=== PATIENT | male | born 1945 | race Caucasian/White ===

== ENCOUNTER 2024-02-04 18:03 | Inpatient (IN) | payer MEDICARE, SELFPAY ==
[2024-02-04] VITALS (44 sets, daily range): BP systolic 96–191; BP diastolic 67–139
--- NOTE | 2024-02-04 16:12 | ED.GENMED ---
History of Present Illness
<JUAN R Blair - Last Filed: 02/04/24 17:38>
General
Chief Complaint: Chest Pain
Source: patient
Exam Limitations: none
Time Seen by Provider: 02/04/24 15:55
Nursing documentation reviewed up to this point in time: agreed with
History of Present Illness
History of Present Illness:
Patient is a 78-year-old male with past medical history of CAD with stents, A-fib history of ischemic cardiomyopathy pancreatitis presents to the ER for evaluation of left-sided chest pain and left arm chest pain that started around 10 AM. He
currently still feels symptoms. He has no associated shortness of breath nausea vomiting. He presents to the ER rapid A-fib was unaware that he was in rapid A-fib. He reports he does have a history however has not taken any of his medication in
the past 2 years simply because he stopped taking them.
He denies any shortness of breath now he does complain of shortness of breath when he walks up the steps. He is unsure if this feels similar to his chest pain when he had a stent previously because it was a long time ago.
Past History
<JUAN R Blair - Last Filed: 02/04/24 17:38>
Past History
ED Past Medical History: Arrthythmia (Paroxysmal atrial fibrillation with cardioversion 2011), CAD, NH (2010) and Other (Cholelithiasis/cholecystitis); Negative HTN or NIDDM
ED Past Surgical History: Cardiac (PTCA with stent to the LAD 2010; cardioversion 2011)
Social History
Tobacco: Smoker
Alcohol: None
Personal: Single
Living: alone
Employment: Employed
Family History
Family History: Other (Noncontributory)
Review of Systems
<JUAN R Blair - Last Filed: 02/04/24 17:38>
Review of Systems
Allergies reviewed?: Yes
All Other Systems: ROS reviewed and negative except as documented in HPI and ROS
Constitutional: Reports no symptoms
Respiratory: Reports no symptoms
Cardiac: Reports chest pain
ABD/GI: Reports no symptoms
Musculoskeletal: Reports other (Left arm pain; bilateral extremity swelling)
Skin: Reports no symptoms
Neurological: Reports no symptoms
Psychiatric: Reports no symptoms
Phy Exam
<JUAN R Blair - Last Filed: 02/04/24 17:38>
General Physical Exam
General Presentation: no apparent distress
General age: appears stated age
General Skin: warm and dry
General Habitus: normal
General Mental: alert
General Hydration: appears well hydrated
Cardiovascular Exam
Cardiovascular Exam: irregularly irregular
Pulmonary Exam
Pulmonary Exam: lungs clear and no respiratory distress
Neurological Exam
Neurological Exam: alert and oriented x3
Musculoskeletal Exam
Musculoskeletal Exam: other (Bilateral lower extremity swelling)
Skin Exam
Skin Exam: normal color and warm/dry
Psychiatric Exam
Psychiatric Exam: normal mood/affect
Scores
<JUAN R Blair - Last Filed: 02/04/24 17:38>
Heart Score for Chest Pain Patients
STEMI patient?: Not applicable
Course
<JUAN R Blair - Last Filed: 02/04/24 17:38>
Orders/Labs/Results
Orders:
Orders
02/04/24 15:41
Electrocardiogram (*1) Urgent
Reason for Study: Chest Pain
EKG- Treatment ONCE
02/04/24 15:59
IV Insert/Care/Rem.- Treatment PRN
02/04/24 16:08
Complete Blood Count/With Diff Urgent
Comprehensive Metabolic Panel Urgent
NT-proBNP Urgent
Comment: ADDON
Troponin I Urgent
02/04/24 16:27
Nitroglycerin Sublingual [Nitrostat (Sublingual)] 0.4 mg SL NOW STA
02/04/24 16:28
Diltiazem HCl [Cardizem] 10 mg IV NOW STA
Venous Doppler Lwr Ext Bilat [US Periph Venous LOWER Ext Blake] Urgent
Comment:
Reason For Exam: swelling
02/04/24 16:30
Diltiazem 125 mg/125 ml Nss [Cardizem] 125 mg in 125 ml IV PER PROTOCOL
Initial dose in mg/hr, then titrate:: 5
Titrate to keep:: Heart rate 80-100 bpm
Titrate by mg/hr:: 5 mg/hr
Frequency of titrations (minutes):: 15
Maximum dose in mg/hr:: 15
Heparin 24652 Units/250 ml 25,000 units in 250 ml IV PER PROTOCOL
Weight to be used for heparin protocol in kilograms (kg):: 96.6
Protocol:: Cardiac Tx/Acute Coronary
PTT Goal Range to be used:: PTT 73 to 111 seconds
Order type:: Initial
INITIAL Infusion Dose (UNITS/KG/hr) & then follow protocol:: 12 units/kg/hr
Infusion Dose in UNITS/hr & then follow protocol (UNITS/hr):: 1,000
INFUSION RATE in mL/hr & then follow protocol (mL/hr):: 10
PTT less than or equal to 64 seconds:: Increase rate by 200 units/hr (+ 2 mL/hr)
PTT 64.1 to 72.9 seconds:: Increase rate by 100 units/hr (+ 1 mL/hr)
PTT 73 to 111 seconds:: Target Range. No change in rate.
PTT 111.1 to 130.9 seconds:: Decrease rate by 100 units/hr (- 1 mL/hr)
PTT 131 to 199.9 seconds:: HOLD for 1 hr. Then decrease rate by 200 units/hr (- 2 mL/hr)
PTT greater than or equal to 200 seconds:: HOLD for 2 hrs & Notify Provider. Then decrease by 200 units/hr (-
2 mL/hr)
Lab follow-up:: Each change, PTT q6h until 2 consecutive are therapeutic. Then PTT
daily.
02/04/24 16:[address] Non Medication Order As Directed
Physician Order: PTT 6 hours after initial start of Heparin infusion
Above order entered?: Yes
02/04/24 16:37
DDimer [D-Dimer] Urgent
PTT Urgent
Comment: Obtain baseline before beginning heparin infusion if not already collected
02/04/24 16:54
Portable Chest Xray [CR Chest Portable - 1 View] Urgent
Comment:
Reason For Exam: cp
Reason Study Needs to be Portable: Other
02/04/24 16:59
Heparin 4,000 units IV NOW STA
Heparin 5,000 units .ROUTE .STK-MED ONE
02/04/24 17:00
Heparin 4,000 units IV NOW STA
02/04/24 17:01
Add On- LAB Urgent
Tests Added?: ProBNP
02/04/24 17:14
Ondansetron Injectable [Zofran] 4 mg .ROUTE .STK-MED ONE
02/04/24 17:16
EKG [Electrocardiogram (*1)] Stat
Reason for Study: Chest Pain
EKG- Treatment ONCE
Ondansetron Injectable [Zofran] 4 mg IV NOW STA
02/04/24 17:35
COVID-19 Antigen Urgent
Source: Nasal Swab
02/04/24 17:36
Urinalysis Reflex To Culture Urgent
02/04/24 22:55
PTT Routine
Comment: for iv heparin
Abnormal Lab Results
02/04/24 02/04/24
16:08 16:37
WBC 14.6 H 10^3/uL
(4.8-10.8)
MCV 94.7 H fL
(80.0-94.0)
MCH 32.2 H pg
(27.0-31.0)
Abs Immat Gran (auto) 0.1 H 10^3/uL
(0-0.05)
Absolute Neuts (auto) 13.2 H 10^3/uL
(1.4-6.5)
Absolute Lymphs (auto) 0.8 L 10^3/uL
(1.2-3.4)
Neutrophils % 90.6 H %
(42.2-75.2)
Lymphocytes % 5.2 L %
(20.5-51.1)
D-Dimer 1.13 H ug/mlFEU
(0.00-0.50)
BUN 23 H mg/dl
(9-20)
Glucose 182 H mg/dl
(70-99)
Total Bilirubin 1.5 H mg/dl
(0.2-1.3)
AST 78 H U/L
(17-59)
Alkaline Phosphatase 162 H U/L
(38-126)
Troponin I 4.720 H* ng/ml
02/04/24 16:08
02/04/24 16:08
Vital Signs
Initial and Last Documented VS:
Initial Vital Signs
Temp Pulse Resp Pulse Ox
98.0 F 120 18 95
02/04/24 15:49 02/04/24 15:49 02/04/24 15:49 02/04/24 15:49
Last Documented Vital Signs
Temp Pulse Resp BP Pulse Ox
98.0 F 88 19 139/106 96
02/04/24 15:49 02/04/24 17:30 02/04/24 17:30 02/04/24 17:30 02/04/24 17:30
Rotary Cutter consulted with Physician
Rotary Cutter consulted with physician?: Yes
Name of Physician Consulted: Noh
<Elroy Andrade MD - Last Filed: 02/04/24 17:35>
Orders/Labs/Results
Orders:
Orders
02/04/24 15:41
Electrocardiogram (*1) Urgent
Reason for Study: Chest Pain
EKG- Treatment ONCE
02/04/24 15:59
IV Insert/Care/Rem.- Treatment PRN
02/04/24 16:08
Complete Blood Count/With Diff Urgent
Comprehensive Metabolic Panel Urgent
NT-proBNP Urgent
Comment: ADDON
Troponin I Urgent
02/04/24 16:27
Nitroglycerin Sublingual [Nitrostat (Sublingual)] 0.4 mg SL NOW STA
02/04/24 16:28
Diltiazem HCl [Cardizem] 10 mg IV NOW STA
Venous Doppler Lwr Ext Bilat [US Periph Venous LOWER Ext Blake] Urgent
Comment:
Reason For Exam: swelling
02/04/24 16:30
Diltiazem 125 mg/125 ml Nss [Cardizem] 125 mg in 125 ml IV PER PROTOCOL
Initial dose in mg/hr, then titrate:: 5
Titrate to keep:: Heart rate 80-100 bpm
Titrate by mg/hr:: 5 mg/hr
Frequency of titrations (minutes):: 15
Maximum dose in mg/hr:: 15
Heparin 59395 Units/250 ml 25,000 units in 250 ml IV PER PROTOCOL
Weight to be used for heparin protocol in kilograms (kg):: 96.6
Protocol:: Cardiac Tx/Acute Coronary
PTT Goal Range to be used:: PTT 73 to 111 seconds
Order type:: Initial
INITIAL Infusion Dose (UNITS/KG/hr) & then follow protocol:: 12 units/kg/hr
Infusion Dose in UNITS/hr & then follow protocol (UNITS/hr):: 1,000
INFUSION RATE in mL/hr & then follow protocol (mL/hr):: 10
PTT less than or equal to 64 seconds:: Increase rate by 200 units/hr (+ 2 mL/hr)
PTT 64.1 to 72.9 seconds:: Increase rate by 100 units/hr (+ 1 mL/hr)
PTT 73 to 111 seconds:: Target Range. No change in rate.
PTT 111.1 to 130.9 seconds:: Decrease rate by 100 units/hr (- 1 mL/hr)
PTT 131 to 199.9 seconds:: HOLD for 1 hr. Then decrease rate by 200 units/hr (- 2 mL/hr)
PTT greater than or equal to 200 seconds:: HOLD for 2 hrs & Notify Provider. Then decrease by 200 units/hr (-
2 mL/hr)
Lab follow-up:: Each change, PTT q6h until 2 consecutive are therapeutic. Then PTT
daily.
02/04/24 16:[address] Non Medication Order As Directed
Physician Order: PTT 6 hours after initial start of Heparin infusion
Above order entered?: Yes
02/04/24 16:37
DDimer [D-Dimer] Urgent
PTT Urgent
Comment: Obtain baseline before beginning heparin infusion if not already collected
02/04/24 16:54
Portable Chest Xray [CR Chest Portable - 1 View] Urgent
Comment:
Reason For Exam: cp
Reason Study Needs to be Portable: Other
02/04/24 16:59
Heparin 4,000 units IV NOW STA
Heparin 5,000 units .ROUTE .STK-MED ONE
02/04/24 17:00
Heparin 4,000 units IV NOW STA
02/04/24 17:01
Add On- LAB Urgent
Tests Added?: ProBNP
02/04/24 17:14
Ondansetron Injectable [Zofran] 4 mg .ROUTE .STK-MED ONE
02/04/24 17:16
EKG [Electrocardiogram (*1)] Stat
Reason for Study: Chest Pain
EKG- Treatment ONCE
Ondansetron Injectable [Zofran] 4 mg IV NOW STA
02/04/24 17:35
COVID-19 Antigen Urgent
Source: Nasal Swab
02/04/24 17:36
Urinalysis Reflex To Culture Urgent
02/04/24 22:55
PTT Routine
Comment: for iv heparin
Abnormal Lab Results
02/04/24 02/04/24
16:08 16:37
WBC 14.6 H 10^3/uL
(4.8-10.8)
MCV 94.7 H fL
(80.0-94.0)
MCH 32.2 H pg
(27.0-31.0)
Abs Immat Gran (auto) 0.1 H 10^3/uL
(0-0.05)
Absolute Neuts (auto) 13.2 H 10^3/uL
(1.4-6.5)
Absolute Lymphs (auto) 0.8 L 10^3/uL
(1.2-3.4)
Neutrophils % 90.6 H %
(42.2-75.2)
Lymphocytes % 5.2 L %
(20.5-51.1)
D-Dimer 1.13 H ug/mlFEU
(0.00-0.50)
BUN 23 H mg/dl
(9-20)
Glucose 182 H mg/dl
(70-99)
Total Bilirubin 1.5 H mg/dl
(0.2-1.3)
AST 78 H U/L
(17-59)
Alkaline Phosphatase 162 H U/L
(38-126)
Troponin I 4.720 H* ng/ml
02/04/24 16:08
02/04/24 16:08
Vital Signs
Initial and Last Documented VS:
Initial Vital Signs
Temp Pulse Resp Pulse Ox
98.0 F 120 18 95
02/04/24 15:49 02/04/24 15:49 02/04/24 15:49 02/04/24 15:49
Last Documented Vital Signs
Temp Pulse Resp BP Pulse Ox
98.0 F 88 19 139/106 96
02/04/24 15:49 02/04/24 17:30 02/04/24 17:30 02/04/24 17:30 02/04/24 17:30
<JUAN R Blair - Last Filed: 02/04/24 17:38>
MDM/Problems Addressed
MDM/Problems Addressed:
Patient is a 70-year-old male who is documented presented to the ER for left-sided chest pain and arm pain. Does have a history of cardiac stents and is unsure if this is the similar pain. He has been noncompliant with medication for 2 years
including anticoagulation med. He does have a history of A-fib who presents in A-fib with an elevated heart rate in the 120s. He has bilateral lower extremity swelling he does admit to shortness of breath with exertion such as walking up steps.
Patient did take 7 baby aspirin prior to arrival Case reviewed with Dr. Andrade; nitroglycerin given. IV heparin ordered for CAD/chest pain. Cardiac troponin is elevated at 4.720, normal creatinine.
DR Andrade spoke with fire loss prevention engineer cardiology. pt admitted to the hospitalist service.
with b/l l/e swelling and hx of afib not anticoagulated b/l US ordered.
Chronic conditions affecting care:
afib/CAD w/ stents
<JUAN R Blair - Last Filed: 02/04/24 17:38>
*Pulse Oximetry
Patient hypoxic: no
*EKG
Interpreted by ED Provider?: Yes
Heart Rate: 128
Rate: tachycardiac
Rhythm: a-fib
Ischemia: non-specific ST changes
*Critical Care Note
Total Time (30-74mins, 75-104mins- exclusive of procedures): Not Applicable
ED Attending Note
<JUAN R Blair - Last Filed: 02/04/24 17:38>
-
Portions of this chart may have been created with voice recognition software.� Occasional wrong word or��sound alike� substitutions may have occurred due to the inherent limitations of voice recognition software.
<Elroy Andrade MD - Last Filed: 02/04/24 17:35>
ED Attending Note
Patient seen and examined by attending physician: Yes
ED Attending Note:
Patient presents to ED secondary to sudden onset of left-sided chest pain, while he was at home, around 10 AM. Chest pain described as tightness, 5 out of 10 on pain scale,, radiating up to his left shoulder and arm, along with diaphoresis. Denies
shortness of breath. Denies nausea or vomiting. Denies dizziness. Denies recent illness. Of note, patient does have a history of CAD with cardiac stents in the past. Unfortunately for the past 2 years, patient has stopped taking all his
medications and stopped seeing any physicians, due to financial reasons. Patient unsure if his current chest pain is similar to what he had experienced in the past. Denies recent travel or surgery. Denies leg pain. However patient does report
increased leg swelling. Patient has not experienced shortness of breath with exertion recently.
Physical Exam
General: mild distress, not acutely ill. afebrile
Head: nc/at. eomi
Neck: supple. no meningeal signs.
Heart: irregular irregular, tachycardic, no murmur. equal radial pulses.
Lungs: no acute respiratory distress. clear bilaterally
Abdomen: normal bowel sounds. not tender.
Neuro: alert and oriented. no focal neurological deficits
Skin: no rash
Psychiatric: well kept. interactive and cooperative
Extremities: LE b/l, nonpitting edema. no calf tenderness.
History, exam, EKG, along with blood work, consistent with likely non-STEMI, with patient currently in rapid atrial fibrillation. Patient started on Cardizem infusion after bolus, with improved heart rate. Patient given sublingual nitroglycerin,
without improvement symptoms. Patient started on heparin protocol, per ACLS guidelines.
Discussed with on-call cardiology, Dr. Parry. Patient will be admitted to hospitalist service with following recommendation: adding Toprol-XL 25 mg twice daily and keeping patient n.p.o. after midnight for likely cath in a.m.
Critical care statement: A total of 40 minutes of critical care time was provided for this patient. This includes management of unstable vital signs, evaluation of the patient at bedside, reviewing the patient's pertinent medical records, discussion
with consultants, review of old EKGs and review of pertinent medical records. This time with separate from time utilized to perform the aforementioned documented procedures
Discharge Plan
Departure
Patient Disposition: Admit
Date of Disposition: 02/04/24
Time of Disposition: 17:34
Admit to: IVU
Presentation/result/management discussed w/ accepting MD/DO: Hospitalist
Discharge Problem:
Non-ST elevation NH (NSTEMI), Atrial fibrillation, rapid
Prescriptions:
No Action
aspirin 81 MG tablet,chewable
567 mg PO DAILYPRN PRN (Reason: chest pain)
Referrals:
Jazmin Avilez DO [Family Provider] -
Interventions
Interventions:
*Risk Screen - Suicide Last Done: 02/04/24 15:49
*General Assessment Last Done: 02/04/24 15:49
*Neglect/Abuse Screening Last Done: 02/04/24 15:49
ED- Fall Risk Assessment Last Done: 02/04/24 16:07
*ED COVID-19 Vaccine History Last Done: 02/04/24 16:07
ED- Cardiac Assessment Last Done: 02/04/24 16:07
ED- Pulmonary Assessment Last Done: 02/04/24 16:07
Discharge Date and Time
Print Language: TAMAZIGHT
[2024-02-04 16:22] LABS: % Basophils 0.2 % (0-2); % Eosinophils 0.1 % (0-6); % Immature Granulocytes 0.5 % (0-0.5); % Lymphocytes 5.2 % (20.5-51.1); % Monocytes 3.4 % (1.7-9.3); % Neutrophils 90.6 % (42.2-75.2); Absolute Immature Granulocytes 0.1 10^3/uL (0-0.05); Absolute Lymphocytes 0.8 10^3/uL (1.2-3.4); Absolute Monocytes 0.5 10^3/uL (0.1-0.6); Absolute Neutrophils 13.2 10^3/uL (1.4-6.5); Hematocrit 51.7 % (39.0-52.0); Hemoglobin 17.6 g/dL (13.0-18.0); Mean Corpuscular Hgb 32.2 pg (27.0-31.0); Mean Corpuscular Volume 94.7 fL (80.0-94.0); Mean Platelet Volume 9.8 fL (7.4-10.4); Nucleated Red Blood Cells % 0 % (-); Platelet Count 187 10^3/uL (130-400); Red Blood Cell Count 5.46 10^6/uL (4.70-6.10); Red Cell Dist. Width 13.5 % (11.5-14.5); White Blood Cell Count 14.6 10^3/uL (4.8-10.8)
[2024-02-04] MEDS: CARDIZEM 10 MG IV (16:35)
[2024-02-04] MEDS: CARDIZEM 125 IV (16:35)
[2024-02-04] MEDS: NITROSTAT (SUBLINGUAL) 0.4 MG SL ×3 (16:36→21:52)
[2024-02-04 16:38] LABS: ALT (SGPT) 26 U/L (0-50); AST (SGOT) 78 U/L (17-59); Albumin 4.7 g/dl (3.5-5.0); Alkaline Phosphatase 162 U/L (38-126); Blood Urea Nitrogen 23 mg/dl (9-20); Calcium 9.2 mg/dl (8.4-10.2); Carbon Dioxide 22 mmol/L (22-30); Chloride 102 mmol/L (98-107); Glucose 182 mg/dl (70-99); Potassium 3.9 mmol/L (3.5-5.1); Sodium 145 mmol/L (135-145); Total Bilirubin 1.5 mg/dl (0.2-1.3); Total Protein 8.2 g/dl (6.3-8.2); eGFR > 60.00
[2024-02-04] MEDS: HEPARIN 25000 UNITS/250 ML IV (16:55)
[2024-02-04 16:58] LABS: APTT 27.9 Sec (23.4-35.0)
[2024-02-04 17:00] LABS: D-Dimer 1.13 ug/mlFEU (0.00-0.50)
[2024-02-04] MEDS: HEPARIN 4000 UNITS IV (17:00)
[2024-02-04] MEDS: ZOFRAN 4 MG IV ×2 (17:16→18:36)
[2024-02-04 17:26] LABS: NT-proBNP 1790 pg/ml
--- NOTE | 2024-02-04 17:39 | HPS.HSE ---
Family Physician
-
Family Physician: Jazmin Avilez
Chief Complaint
-
left sided chest pain
History of Present Illness
78-year-old male with past medical history of CAD with stents, A-fib history of ischemic cardiomyopathy pancreatitis presents to the ER for evaluation of left-sided chest pain and left arm chest pain that started around 10 AM. He currently still
feels symptoms. stated sob with exertion. denied fever, chills, runny nose,congestion, cough. denied abdominal pain,n,v,d. denied dysuria hematuria.
He presents to the ER rapid A-fib was unaware that he was in rapid A-fib.
Patient was noted to have elevated Trope. Initiated on heparin drip, Cardizem drip. Admitted for further management
Medical History
Past Medical History
Past Medical History: Reports Other
Additional Past Medical History:
Coronary artery disease
Hyperlipidemia
Paroxysmal A-fib
Hypertension
Hyperlipidemia
Acute cholecystitis
Past Surgical History: Reports Other
Additional Past Surgical History:
Tonsillectomy
Cardiac ablation
Cholecystectomy
Vasectomy
Social History
Tobacco: Former Smoker
Alcohol: None
Drug: None
Family History
Family History: Not pertinent
Allergies / Home Medications
Allergies reflects when Allergies were last updated in [facility].
Home Medications with original date entered in [facility]
Allergy/Medication List:
Allergies
Allergy/AdvReac Type Severity Reaction Status Date / Time
No Known Allergies Allergy Unverified 02/04/24 15:49
Home Medications
aspirin 81 mg chewable tablet 567 mg PO DAILYPRN PRN chest pain 02/04/24
Review of Systems
-
Constitutional: Reports No Symptoms
EENT: Reports No Symptoms
Respiratory: Reports Trouble Breathing
Cardiac: Reports Chest Pain
Abdomen/GI: Reports No Symptoms
: Reports No Symptoms
Musculoskeletal: Reports No Symptoms
Skin: Reports No Symptoms
Neurological: Reports No Symptoms
Endocrine: Reports No Symptoms
Hematologic/Lymphatic: Reports No Symptoms
Psych: Reports No Symptoms
Physical Exam
Vital Signs
Vital Signs
Temp Pulse Resp BP Pulse Ox
98.0 F 88 19 139/106 96
02/04/24 15:49 02/04/24 17:30 02/04/24 17:30 02/04/24 17:30 02/04/24 17:30
Physical Exam
General: Well Developed, Well Nourished and No Apparent Distress
HEENT: NormoCephalic, Moist mucous membranes and Atraumatic
Respiratory: Clear
Cardiac: S1/S2 and Regular Rhythm; No Murmur or Rub
GI: Soft, Non Tender, Non Distended and Normal Bowel Sounds; No Organomegaly
Rectal: Deferred by Provider
Musculoskeletal: No Clubbing, No Cyanosis and No Edema
Skin: No Rash
Neuro: AO x 3 and Nonfocal/grossly intact
Psych: Calm
Laboratory Results
-
02/04/24 16:08
02/04/24 16:08
Laboratory Results
APTT 27.9 Sec (23.4-35.0) 02/04/24 16:37
Total Bilirubin 1.5 mg/dl (0.2-1.3) H 02/04/24 16:08
AST 78 U/L (17-59) H 02/04/24 16:08
ALT 26 U/L (0-50) 02/04/24 16:08
Alkaline Phosphatase 162 U/L (38-126) H 02/04/24 16:08
Troponin I 4.720 ng/ml H* 02/04/24 16:08
Data Reviewed
-
Lab Data: Labs Reviewed by me
Impression/Plan
-
# NSTEMI
-N.p.o. after midnight for likely cath in the morning
-Continue to trend troponin
-obtain ECHo
-EKg in AM
-BP dropped on Nitro, hold nitro
-morphine prn for pain
-statin
-asa
-cardiology consulted
# Rapid atrial fibrillation
-On Cardizem drip
-Heparin protocol continued
-Toprol XL 25 twice a day
-EKG with A-fib with RVR
# History of coronary artery disease
-Cardiac stents
# Leukocytosis likely stress reaction
-WBC 14.6
-Patient is afebrile
-Continue to monitor
# Elevated D-dimer
-Ultrasound of lower extremities pending
# DVT prophylaxis
-Heparin
# CODE STATUS
-Full code
[2024-02-04] MEDS: MORPHINE SULFATE 2 MG IV (17:45)
--- NOTE | 2024-02-04 18:09 | W.PN.UPDATE ---
Addendum entered and electronically signed by Baljeet Aguirre MD 02/04/24 18:19:
Addendum: Patient took 7 tabs of baby ASA this AM with onset of CP prior to ER per patient
Original Note:
Update Note
Progress Note Update
This note serves as an addendum to the H&P by forensic artist LUCIE Natali Julianne MAYER
HPI
78M HX ICM, LVEF 50% in 2019, CAD with stents HX inferior ST-elevation myocardial infarction seen at ER
- acute onset of left-sided chest pain and left arm chest pain that started around 10 AM with persistent CP
- First TPNI is 4.7
- denied shortness of breath nausea vomiting.
He was unaware of rapid A-fib when he presented to ER
HX Prx AF on;y on ASA. Not on AC
NEG exercise stress test in 2020 as below
PHX: as above
Reviewed VS: unremarkable
PE
Gen: Not toxic , NAD
HEENT: anicteric
Neck: supple
Lungs: CTA
Cor: Irregular VR is 80s
Abdomen: soft and benign
COSTUME MAKER: AAO3, symmetric movement s in allextremities
MS: no edema
Psych: normal mood and affect
Laboratory Tests
02/04/24 02/04/24 02/04/24
16:08 16:37 17:47
WBC 14.6 H
Hgb 17.6
Plt Count 187
D-Dimer 1.13 H
Creatinine 1.1
eGFR > 60.00
Total Bilirubin 1.5 H
AST 78 H
Alkaline Phosphatase 162 H
Troponin I 4.720 H*
SARS-CoV-2 Antigen Pending
First TPN 4.72
EKG
ATRIAL FIBRILLATION WITH RAPID VENTRICULAR RESPONSE WITH PREMATURE VENTRICULAR
OR ABERRANTLY CONDUCTED COMPLEXES
NON-SPECIFIC INTRA-VENTRICULAR CONDUCTION BLOCK
POSSIBLE ANTEROLATERAL INFARCT , AGE UNDETERMINED
T WAVE ABNORMALITY, CONSIDER INFERIOR ISCHEMIA
ABNORMAL ECG
WHEN COMPARED WITH ECG OF 28-APR-2016 08:34,
SIGNIFICANT CHANGES HAVE OCCURRED
CXR: pending report
Both Leg US: pending
04/03/20 stress ECHO
Normal treadmill stress echocardiogram at 4.5 mets.
Low risk stress test. Exercise tolerance is poor however at 4.5 mets due to leg weakness.
Last hospitalist admission:
DATE OF ADMISSION: 06/10/2018 -DATE OF DISCHARGE: 06/12/2018
DISCHARGE DIAGNOSES:
1. Acute pancreatitis.
2. History of cholecystectomy in 2014.
3. Paroxysmal atrial fibrillation. Patient is not on anticoagulation.
4. Coronary artery disease, history of inferior ST-elevation myocardial infarction.
5. Ischemic cardiomyopathy with ischemic hypokinesis and ejection fraction of 50%.
6. History of tobacco use.
ASSESSMENT & PLAN
NSTEMI
- agree with Heparin gtt
- ASA 325 mg and c/w baby ASA daily
- IV Morphine PRN
- add NTG gtt to keep CP free
- NPO after MN for cardiac cath in AM
- Lipids profile
- to initiate Statin
- ECHO in AM
- [facility] card consulted ( Case discussed with [employer] Services Dispatcher upon admission )
Fast AF - currently HR 80s , last BP 130/100
HX Prx AF
Currently not on OAC
- c/w Dilt gtt
- Heparin gtt
PMHX :
HX ICM, LVEF 50% in 2019, CAD with stents
HX inferior ST-elevation myocardial infarction
DVT Px: Heparin gtt
Full code
IVU
[2024-02-04 18:12] LABS: COVID-19 Antigen Negative (Negative)
[2024-02-04] MEDS: NITROGLYCERIN PREMIX 250 IV ×2 (18:25→22:42)
--- NOTE | 2024-02-04 18:34 | EDRN ---
nitro gtt stopped @ 1830 d.t hypotension. pt now vomiting. Natali Yun CARPET BINDER made aware. requested jayleenan.
--- NOTE | 2024-02-04 18:41 | EDRN ---
@1810 MD Aguirre @ pts bedside, when he exited room RN expressed concern regarding nitro gtt d.t pt on cardizem gtt and pts BP. Per the order @ that time SBP to remain under 160 which it had. also requested RN administer aspirin stat.. MD/EXHIBITOR SALES made
aware that pt took 7 asa fishing vessel captain to ER.. order then cancelled. per MD Aguirre still give nitro for pain control.
@1833 Natali Yun d/c order for nitro gtt d/t pts immediate hypotension and vomiting. order placed for zofran and zofran administered. pt changed out of dirty gown.
[2024-02-04] MEDS: MORPHINE SULFATE 1 MG IV (20:36)
[2024-02-04] MEDS: LIPITOR 40 MG PO (20:37)
[2024-02-04] MEDS: TOPROL XL 25 MG PO (20:37)
--- NOTE | 2024-02-04 20:40 | PTCARENOTE ---
Addendum entered by Whitley Linares RN 02/05/24 02:04:
Patient having runs of VTach. Cardizem drip discontinued, amio started-- see MAR. Patient tolerating Nitro drip.
Addendum entered by Whitley Linares RN 02/05/24 01:59:
Pt still having chest pain. Sublingual nitro given-- see MAR. Updates given to Brenda Davenport NP, and MARCELLUS Nicole. STAT EKG done. Both came to see patient bedside. Nitro drip initiated-- see MAR.
Original Note:
Received patient at change of shift from ED. BP 135/106, A-Fib 80s, 95% on room air. Cardizem running @ 5 mg/hr and heparin running at 10 ml/hr. Patient c/o of nausea and chest pain (09/19). RN reached out to Brenda Davenport to see what to give about
pain-- gave morphine-- see MAR.
--- NOTE | 2024-02-04 23:08 | W.PN.UPDATE ---
Addendum entered and electronically signed by JUAN R Diamond 02/05/24 00:43:
Patient noted to have 2 episodes of NSVT, Dali Mendez spoke w/Dr. Parry, switched from Cardizem gtt to Amiodarone gtt. Appreciate assistance of CVICU overnight provider, will continue to monitor patient. Plan for LHC in AM per notes.
Original Note:
Update Note
Progress Note Update
Patient currently on Heparin gtt and Cardizem gtt. Patient evaluated for continued chest pain, rates 6 out of 10. Patient given PRN morphine as ordered x 1 with no change in chest pain. Ordered Nitro 0.4 mg SL x 3 doses with no change in chest pain
level. Patient was on nitro gtt in ED and BP dropped. Contacted Dr. Parry and updated on patient status. (ECG's sent, VS sent and reviewed by Dr. Parry). Patient restarted on Nitro gtt at 10 mcg/min, can maintain unless SBP <85. Pt started vomiting
w/initiation of Nitro gtt, Dr. Parry aware. Ed from CVICU also following patient. Patient VS are stable at this time on nitro gtt.
[2024-02-05] VITALS (66 sets, daily range): BP systolic 75–161; BP diastolic 43–134; BMI 31.3
--- NOTE | 2024-02-05 00:09 | W.PN.UPDATE ---
Update Note
Progress Note Update
Cardiology update note:
-Pt's 6/10 chest pain reduced to 3/10 after vomiting. Pt is currently in a-fib 80-90's on Cardizem gtt @ 5mg/hr, Heparin gtt, and initiated on NTG gtt @ 10 mcg/min
-Pt noted to have 2 episodes of NSVT, spoke to Dr. Parry about switching Cardizem gtt to Amiodarone gtt despite slightly elevated LFTs (AST 78 and Alk phos 162) and he concurs
-Supplemental O2 of 2L NC applied, O2sats 95-97%, BP 117/76, HR 80-90's a-fib
-Pt's for LHC in the AM. Will cont. to closely monitor
[2024-02-05] MEDS: CORDARONE 103 MG IV (00:21)
[2024-02-05 00:29] LABS: APTT 77.8 Sec (23.4-35.0)
[2024-02-05] MEDS: CORDARONE 518 MG IV ×2 (01:13→22:47)
[2024-02-05] MEDS: ZOFRAN 4 MG IV ×2 (03:28→17:31)
[2024-02-05 06:32] LABS: Hematocrit 44.6 % (39.0-52.0); Hemoglobin 15.3 g/dL (13.0-18.0); Mean Corp Hgb Conc. 34.3 g/dL (33.0-37.0); Mean Corpuscular Hgb 32.6 pg (27.0-31.0); Mean Corpuscular Volume 95.1 fL (80.0-94.0); Mean Platelet Volume 10.9 fL (7.4-10.4); Platelet Count 178 10^3/uL (130-400); Red Blood Cell Count 4.69 10^6/uL (4.70-6.10); Red Cell Dist. Width 13.9 % (11.5-14.5); White Blood Cell Count 20.7 10^3/uL (4.8-10.8)
--- NOTE | 2024-02-05 06:56 | W.PN.HOSP.TC ---
Today's Communication/Plan
-
c/w heparin, amiodarone gtt,nitro gtt, aspirin, BB, statin
Give Morphine for chest pain
Appreciate cardiology help
Assessment / Plan
Assessment / Plan
Physical Exam
General: Well Developed, Well Nourished and No Apparent Distress
HEENT: Normocephalic, Moist mucous membranes and Atraumatic
Respiratory: Clear
Cardiac: S1/S2 and Regular Rhythm; No Murmur or Rub
GI: Soft, Non Tender, Non Distended and Normal Bowel Sounds; No Organomegaly
Rectal: Deferred by Provider
Musculoskeletal: No Clubbing, No Cyanosis and No Edema
Skin: No Rash
Neuro: AO x 3 and Nonfocal/grossly intact
Psych: Calm
# NSTEMI
known CAD
still having chest pain
troponin went up to 133 from 4.7 upon admission
c//w IV heparin gtt, nitro gtt, aspirin, statin , BB
give one dose of morphine with PRN Zofran if nausea develops
d/w Cardiology service, pt is going for cath this morning,
Currently BP and HR are stable
Appreciate cardiology help
# NSVT
c/w amiodarone drip for now.
# Persistent atrial fibrillation with rapid ventricular response
HR around 80s this morning, on BB & Amiodarone
# Elevated liver enzymes
likely due to acute OK/ ischemia
No tenderness in abdomen on exam
continue to support BP as needed
# Essential (primary) hypertension
# Leukocytosis likely stress reaction
-WBC 14.6
-Patient is afebrile
-Continue to monitor
# Elevated D-dimer
-Ultrasound of lower extremities pending
# DVT prophylaxis
-Heparin
# CODE STATUS
-Full code
Total time spent to see the patient, examine the patient on the floor, review data and lab results, discuss treatment plan with patient, nursing staff around 55 minutes
Anticipated Discharge: > 48 hours
Subjective/Interval History
-
Date of Service: February 05, 2024
Events over night were reviewed
He reports chest pain ( lower part of chest), no nausea this morning
Objective Data
-
Labs:
Laboratory Results
02/04/24 02/05/24 02/05/24
22:55 00:03 05:58
WBC 20.7 H
Hgb 15.3
Hct 44.6
Plt Count 178
APTT Cancelled 77.8 H 86.0 H
Sodium Pending
Potassium Pending
Chloride Pending
Carbon Dioxide Pending
BUN Pending
Creatinine Pending
Glucose Pending
Calcium Pending
Total Bilirubin Pending
AST Pending
ALT Pending
Alkaline Phosphatase Pending
Vital Signs:
Vital Signs
Temp Pulse Resp BP Pulse Ox
97.8 F 77 18 138/102 97
02/05/24 00:30 02/05/24 04:00 02/05/24 00:30 02/05/24 03:25 02/05/24 00:30
I&O
02/03/24 02/04/24 02/05/24
06:59 06:59 06:59
Output Total 100 / 100
Balance -100 / -100
[2024-02-05 06:57] LABS: Alkaline Phosphatase 125 U/L (38-126); Blood Urea Nitrogen 30 mg/dl (9-20); Calcium 8.5 mg/dl (8.4-10.2); Carbon Dioxide 22 mmol/L (22-30); Chloride 100 mmol/L (98-107); Direct Bilirubin 0.3 mg/dl (0.0-0.4); Estimated Creatinine Clearance 53 ml/min; Glucose 298 mg/dl (70-99); HDL Cholesterol 53 mg/dl; LDL Cholesterol, Calculated 107 mg/dl; Potassium 4.5 mmol/L (3.5-5.1); Sodium 138 mmol/L (135-145); Total Bilirubin 2.5 mg/dl (0.2-1.3); Total Cholesterol 176 mg/dl (50-199); Triglyceride 80 mg/dl (10-149); Very Low Density Lipoprotein 16 mg/dl (0-30); eGFR 56.23
--- NOTE | 2024-02-05 07:11 | CON.CAR ---
Addendum entered and electronically signed by David Parry DO 02/05/24 10:08:
I saw and examined the patient.
The Per Diem Registered Nurse's note was reviewed and I agree with the note.
Comment:
Plan:
NSTEMI with rising troponin and recurrent cp.
Cont IV Heparin
Titrate IV nitroglycerin
SL nitro this am, morphine prn.
Continue metoprolol, aspirin, Lipitor. Eventual URSULA inhibitor.
Discussed compliance with medications is a must going forward.
Reviewed previous cath with the patient.
Check echocardiogram
Discussed with nursing.
Patient for urgent cardiac catheterization, procedure of which and risks were discussed.
Original Note:
Consultation
Consultation Request
Date/Time Consultation Requested: 02/04/2024 , 1755
Date/Time Consultation Performed: 02/05/2024 0700
Requesting Provider: JUAN R Jensen
Performing Provider: JUAN R Vrama
Reason for Consultation: chest pain
Medical History
-
Chief Complaint: chest pain
History of Present Illness:
78-year-old male with past medical history inferior TX with stenting to the RCA 08/2015,, previous LAD stenting , 2010 in setting of non-ST elevation TX, Permanent atrial fibrillation, ischemic cardiomyopathy (most recent stress echo 03/2020 EF 55 to
60%, normal stress echo) presented to the ED 02/04/2024 with left-sided chest and arm pain with associated shortness of breath starting around 10 AM. He was noted to be in rapid A-fib and started on heparin and Cardizem drips.Patient had taken 7
baby aspirin prior to admission. He has been off all medications for some time and was last seen by cardiology 04/2020. Initial troponin 4.7, EKG atrial fibrillation, right bundle branch block, Anterior lateral Q waves. BNP 1790. Started on
heparin drip as above and nitro drip. Blood pressure dropped on nitro drip so stopped in ED but had subsequent 6/10 chest pain and given morphine with no change in pain. Received 3 sublingual nitros with no change in pain. He was restarted on
nitro drip. Also having vomiting.
Subsequently developed 2 episodes of nonsustained VT and was switched from Cardizem drip to amiodarone. Troponin trending up to 49, now 133. Patient currently having 5 out of 10 epigastric pressure and receiving IV morphine. Blood pressure
130s/80s.heart rate 80s to 90s in A-fib. Plan for left heart cath today.
Past medical history:
Inferior TX 08/2015 with stents to RCA, LAD stents 08/2010
Permanent atrial fibrillation
Laparoscopic cholecystectomy 2014
pancreatitis
tobacco use
Past Medical History
Past Medical History: Other (as above)
Past Surgical History: Cholecystectomy and Tonsilectomy
Social History
Tobacco: Former Smoker
Alcohol: None
Drug: None
Family History
Family History: Reviewed & Not Pertinent
Allergies / Home Medications
Allergy/AdvReac Type Severity Reaction Status Date / Time
No Known Allergies Allergy Unverified 02/04/24 15:49
�Medication �Instructions �Recorded �Confirmed �Type
aspirin 81 mg chewable tablet 567 mg PO DAILYPRN PRN chest pain 02/04/24 02/04/24 History
Physical Exam
Vital Signs
Temp Pulse Resp BP Pulse Ox
97.8 F 77 18 138/102 97
02/05/24 00:30 02/05/24 04:00 02/05/24 00:30 02/05/24 03:25 02/05/24 00:30
Lab Results
02/05/24 05:58
02/05/24 05:58
Troponin I 49.000 ng/ml H* D 02/04/24 23:34
Qiv-L-Wmghxwvydow Pept 1790 pg/ml 02/04/24 16:08
GEN:pale, awake, Ox3
HEENT: supple, anicteric, mmm
LUNGS: CTA, no wheezes/rales
CV: Reg, S1/S2, 2/6 systolic murmur LSB
ABD: soft, BS+, NT/ND
EXT: 1+ LE edema, feet/legs cool
NEURO: Gross non-focal
SKIN: No rash
Impression / Plan
-
PCP:
Primary programming intern: Jude Guerrero MD
Impression:
Acute TX
A-fib with rapid ventricular response/underlying permanent atrial fibrillation
NSVT
h/o CAD s/p inf TX w/ JAZMÍN x 2 RCA 2015, LAD BMS stent 2010
Right bundle branch block
Chest pain
Cholecystitis. Status post laparoscopic cholecystectomy
Previous cardiovascular studies:
Cardiac cath 08/31/2015: Widely patent proximal LAD stent without significant restenosis, mild luminal irregularities mid LAD. Circumflex mild luminal irregularities. RCA: Mid 60 to 70% stenosis, 95 distal stenosis proximal to takeoff of right PDA.
Right PDA 30%, distal right posterior lateral 50%. Acute marginal arising from mid RCA 80% stenosis. Status post JAZMÍN distal RCA, mid RCA
Cardiac cath 08/31/2010: 90% proximal LAD, followed by 80% LAD. Small OM1 branch with 75% proximal stenosis. Status post PTCA bare-metal stent to proximal LAD
Stress echo 04/03/2020: Normal, low exercise tolerance, 4.5 METS EF 55 to 60%
Echo 09/01/2015: EF 50%, mild concentric LVH, mild aortic sclerosis
Labs 02/05/2024: Na 138, K 4.5, BUN 30, creat 1.3, ast 662, alt 83, BNP 1790
LDL 107, HDL 53, trig 80, tchol 176
Plan:
-ruling in acute TX, troponin up to 133, continue to trend
-cont Heparin/NTG
-LHC today
-having CP on NTG gtt, PRN Morphine for breakthrough pain
-contiue Amio for NSVT on telem (up to 27 beat runs NSVT prior to starting Amio - NSVT now resolved on Amio)
-resume outpatient cardiac meds once stablized
Data Reviewed
-
EKG: Tracing Personally Visualized and interpreted
Labs: Labs Reviewed by me
[2024-02-05 07:32] LABS: ALT (SGPT) 83 U/L (0-50); AST (SGOT) 662 U/L (17-59)
[2024-02-05] MEDS: TOPROL XL 25 MG PO ×2 (08:45→20:04)
[2024-02-05] MEDS: LOW STRENGTH ASPIRIN 81 MG PO (08:45)
[2024-02-05] MEDS: NITROSTAT (SUBLINGUAL) 0.4 MG SL (08:52)
--- NOTE | 2024-02-05 08:53 | PTCARENOTE ---
Patient with 6 out 10 chest pain. 1 SL ntiro given, nitro increased to 20mcg/min. Run of VT 10 beats this morning voiding in urinal dark yellow color urine, bladder scan 89. Has been in A-fib in the 80's Nausea persists. 4 baby ASA given and
Metoprol given. Report given to the cath lab tech, patient sent to the cath lab tech
[2024-02-05 09:39] LABS: ACT-LR - POC 302 Seconds (116-155)
[2024-02-05 09:48] LABS: ACT-LR - POC 327 Seconds (116-155)
[2024-02-05 10:10] LABS: ACT-LR - POC 294 Seconds (116-155)
[2024-02-05 10:23] LABS: ACT-LR - POC 332 Seconds (116-155)
[2024-02-05 10:56] LABS: ACT-LR - POC 337 Seconds (116-155)
--- NOTE | 2024-02-05 11:04 | ITS.CL.CATH ---
[employer] - Catheterization
Cardiac Catheterization
Procedure Report:
LEFT HEART CATH AND CORONARY INTERVENTION
Date of Procedure: February 05, 2024
Referring: Dr. David Parry
PROCEDURES:
1. Left heart catheterization with coronary and single-plane left ventriculography
2. Successful stenting of the LAD with overlapping 2.25 x 38 mm and 3.0 x 28 mm. The more distal stent was postdilated with a 2.5 mm noncompliant balloon while the more proximal stent was postdilated with a 3.25 mm noncompliant balloon
3. Intravascular ultrasound
4. Treatment of no reflow with adenosine, nicardipine, and epinephrine antegrade through guide catheter and through Twin-Pass microcatheter
INDICATION: This is a 78-year-old gentleman who was admitted to [facility] following the development of substernal chest pressure beginning the day of admission in the morning and persisting throughout the day into the evening and following
admission. He is permanently in atrial fibrillation and has a prior history of prior LAD and RCA stenting. He discontinued all of his medications at home sometime ago. He had an initial troponin of 4.7 and repeat troponin readings went to 19.2
ng/mL, 49.0 ng/mL then to 133 ng/mL. He did continue to experience some degree of chest discomfort but symptoms improved with better heart rate control with chest pain going from 6/10 in intensity to 3/10 in intensity after experienced nausea and
vomiting. Low-grade chest discomfort was still reported this morning.
ACCESS: Right common femoral artery, 6 [place] sheath. Right radial pulse was absent/very faint
HEMODYNAMICS (mmHg):
AO (s/d, m) : 114/88, 100
LV (s/d) : 113/23
LVEDP : 27
CORONARY FINDINGS
Dominance: Right
LEFT MAIN: Small caliber left main with minor distal tapering
LEFT ANTERIOR DESCENDING: The LAD arises normally from the left main and runs in the anterior interventricular groove. There is a stent in the proximal LAD from 2010 with a hazy subtotal occluded segment in the distal portion of the stent
suggestive of thrombus and occlusion of the LAD approximately 20 mm beyond the stented segment.
CIRCUMFLEX: The circumflex is a medium caliber nondominant vessel giving rise to a small OM1 and bifurcating OM 2.
RIGHT CORONARY: The right coronary artery is a large-caliber dominant vessel. The mid right coronary artery has overlapping 3.0 x 28 mm and 3.0 x 23 mm Xience stents in the mid to distal artery. There is 30% in-stent restenosis within the more
proximal stent. The origin of the PDA has a 60% stenosis with the mid PDA having a 60% stenosis in the distal PDA having an 80% stenosis the posterolateral branch is a moderate caliber vessel with 70% stenosis from his mid to distal portion
VENTRICULOGRAPHY: Left ventriculography was performed in an STAHL projection. The ventricle was found dilated and globally hypokinetic with mid to distal anterior, apical, and apical inferior severe hypokinesis to akinesis
ANGIOPLASTY PROCEDURE DETAIL: Upon review of the diagnostic catheterization films a decision was made to proceed with percutaneous revascularization of the occluded mid LAD. Intravenous heparin was administered and the ACT was monitored throughout
the procedure. A 180 mg loading dose of ticagrelor was given. The origin of the left main was cannulated with a 6 [place] EBU 3.75 guiding catheter and a BMW guidewire across the stent then into the distal vessel with a moderate degree of
difficulty. Balloon predilation was performed using a 2.0 x 15 mm Euphora balloon from the mid LAD to the more proximal LAD with inflations performed in an overlapping fashion. Antegrade flow was not restored with evidence of no reflow distally.
Intracoronary nitroglycerin was given to the guide catheter and was followed by additional rounds of intracoronary adenosine in an attempt to improve no reflow. Flow into the mid LAD did not improve and angiography was suggestive of a residual
high-grade mid LAD stenosis. Serial balloon inflations were performed using a 2.0 mm Euphora balloon and was followed by placement of a 2.25 x 38 mm Virgilio stent that was implanted at nominal pressures. A 3.0 x 30 mm Virgilio stent was positioned
overlapping with the mid LAD stent in position within the old LAD stent covering almost the entire previously stented segment. The Gratiot stent was implanted at nominal pressures. Antegrade flow into the distal vessel remained poor. At this point
intravascular ultrasound was performed in an attempt to understand the etiology of poor distal flow as it was uncertain if it was related to a mechanical issue such as distal vascular dissection or secondary to poor outflow due to a microvascular
issue. The [place] catheter was advanced to the apical LAD and pullback was performed. The distal LAD was a very small caliber vessel measuring 2 mm or less. The distal stent was well approximated to the vessel wall and there was no ultrasound
evidence of distal dissection. The average minimal luminal diameter in the distal LAD was around 2.25 mm to 2.5 mm. The IVUS catheter was slowly withdrawn proximally and the stent appeared well approximated but maybe a little undersized. The
distal stent was post dilated with a 2.25 mm NC balloon with serial balloon inflations performed to the mid stent. The proximal segment of the more distal stent was post dilated with a 3.25 mm NC balloon throughout the more proximal stent where the
stent was post dilated to 22 atmospheres. Persistent no reflow was noted. A Twin-Pass catheter was advanced distally and intracoronary nicardipine was administered between 120 mcg and 200 mcg. Nicardipine failed to improved distal flow and the
decision was made to administer epinephrine. Epinephrine was administered to the distal coronary bed. A total of 3 rounds of epinephrine were given between 20 mcg and 40 mcg. Heart rate and blood pressure did improve. At the conclusion of the
procedure there was NAE 2 flow to the distal LAD. The procedure was long and complex requiring multiple catheter exchanges and infusion of adenosine, nicardipine, and epinephrine to the distal vessel with Twin-Pass catheter.
RADIATION SUMMARY: Fluoro Time (min): 16.3, Dose (mGy): 1195, DAP (Gy.cm2) : 94.6
CONCLUSIONS
1. Complex stenting of the LAD with overlapping 3.0x30 mm and 2.25 x 38 mm Gratiot stents that were post dilated with a 2.25 mm NC balloon distally and a 3.25 mm NC balloon in the proximal to mid portion of the stent
2. The procedure was complicated by the development of no reflow that required multiple round of adenosine, nicardipine, and epinephrine
3. Intravascular ultrasound utilized to confirm no distal dissection and to assess luminal diameters for post dilation
RECOMMENDATIONS
1. Aspirin, clopidogrel, and oral anticoagulation for 2 weeks followed by clopidogrel and Eliquis
2. The patient has a history of noncompliance. He stopped his antiplatelet medications and stopped his Eliquis with permanent atrial fibrillation. I discussed the need to remain compliant with medications. He stated an understanding but I remain
worried about early termination of antiplatelet medications. The need for medication compliance is essential
3. Elevated LFT's likely secondary to myocardial infarction. Holding statin therapy for now. Will follow serial LFT's
4. Echocardiogram
5. Supportive care.
Copy to: Dr. Jude Guerrero
--- NOTE | 2024-02-05 12:04 | PTCARENOTE ---
received pt from [facility] into 2265. Pt is lethargic but easily arousable to verbal stimuli, AAOX3. Afib on tele w HR 70's, + doppler pulses. Pt co 4/10 persistent CP. BP 114/93. Lungs diminished, pox 93-96% on 6L NC. Pt denies nausea. Pt was able to
void steve urine. Dressing to right groin C/D/I. Bedrest maintained.
drips: Amiodarone 0.5mg/min
Integrilin 16 ml/hr
[2024-02-05 12:28] LABS: Glycohemoglobin (HgbA1c) 5.1 % (4.0-5.6)
--- NOTE | 2024-02-05 13:54 | PTCARENOTE ---
incont care provided, echo at bedside.
[2024-02-05] MEDS: PROTONIX 40 MG PO (15:09)
[2024-02-05] MEDS: NITROGLYCERIN PREMIX 250 IV (15:09)
--- NOTE | 2024-02-05 15:20 | PTCARENOTE ---
Nitroglycerin gtt initiated as ordered for CP 06/20. Will monitor.
[2024-02-05] MEDS: INTEGRILIN 100 IV (15:34)
[2024-02-05 15:59] LABS: Urine Albumin 1+ (Neg - Trace); Urine Bilirubin 1+ (Negative); Urine Character Clear (Clear); Urine Color Amber; Urine Glucose Negative (Negative); Urine Ketone Negative (Negative); Urine Leukocyte Trace (Negative); Urine Nitrite Positive (Negative); Urine Occult Blood Negative (Negative); Urine Specific Gravity 1.005 (<1.030); Urine Urobilinogen Negative (Neg - 1+)
--- NOTE | 2024-02-05 16:18 | CM ---
Reviewed chart. Mr. Mukherjee was transferred to CVICU. Tried several time to see him, but he was not available. Will try again tomorrow to review discharge plans.
[2024-02-05 16:21] LABS: Urine Bacteria Moderate (Negative); Urine Red Blood Cell 0-2 /HPF (0-2); Urine Squamous Cell 0-2 /LPF (Few); Urine White Cell 0-2 /HPF (0-5)
--- NOTE | 2024-02-05 18:31 | PTCARENOTE ---
updated pt's daughter via telephone.
--- NOTE | 2024-02-05 18:38 | PTCARENOTE ---
Dr. Mills made aware of troponin 345.000. Instructed to increase Nitro gtt from 10mcg to 15mcg.
--- NOTE | 2024-02-05 19:01 | PTCARENOTE ---
received pt from previous rn. Pt is drowsy but easily arousable to verbal stimuli, AAOX3. Afib on tele w HR 90's, + doppler pulses. +1 B/L Le edema, pox 95-98% on 4L NC, lungs diminished, pt c/o of nausea reglan given, +bs, condom cath draining
steve urine, R groin dressing with old drainage, piv intact. Bedrest maintained.
gtt: amio 0.5
Nitro 15
[2024-02-05] MEDS: REGLAN 10 MG IV (19:56)
[2024-02-05] MEDS: HEPARIN 25000 UNITS/250 ML IV (22:35)
--- NOTE | 2024-02-05 23:37 | PTCARENOTE ---
pt took out Left AC IV, pt confused but easily reoriented with verbal stimuli
[2024-02-06] VITALS (32 sets, daily range): BP systolic 83–113; BP diastolic 65–98; BMI 30.7
--- NOTE | 2024-02-06 02:45 | PTCARENOTE ---
pt removed L hand IV and frequently removing his oxygen and other devices, new #20 placed in R hand, Mitt hand restraints applied per [facility]PA Ed Jing order
--- NOTE | 2024-02-06 05:13 | PTCARENOTE ---
routine labs and EKG obtained, VSS, A-fib per monitor and storage bin tender assessment remains unchanged
[2024-02-06 05:24] LABS: Hematocrit 41.2 % (39.0-52.0); Hemoglobin 13.8 g/dL (13.0-18.0); Mean Corp Hgb Conc. 33.5 g/dL (33.0-37.0); Mean Corpuscular Hgb 32.6 pg (27.0-31.0); Mean Corpuscular Volume 97.4 fL (80.0-94.0); Mean Platelet Volume 11.2 fL (7.4-10.4); Platelet Count 149 10^3/uL (130-400); Red Blood Cell Count 4.23 10^6/uL (4.70-6.10); Red Cell Dist. Width 14.2 % (11.5-14.5); White Blood Cell Count 30.6 10^3/uL (4.8-10.8)
[2024-02-06 05:31] LABS: APTT 59.1 Sec (23.4-35.0)
[2024-02-06 05:45] LABS: ALT (SGPT) 191 U/L (0-50); AST (SGOT) 677 U/L (17-59); Albumin 3.3 g/dl (3.5-5.0); Alkaline Phosphatase 91 U/L (38-126); Blood Urea Nitrogen 58 mg/dl (9-20); Calcium 8.3 mg/dl (8.4-10.2); Carbon Dioxide 23 mmol/L (22-30); Chloride 99 mmol/L (98-107); Estimated Creatinine Clearance 37 ml/min; Glucose 264 mg/dl (70-99); Potassium 4.8 mmol/L (3.5-5.1); Sodium 135 mmol/L (135-145); Total Bilirubin 3.7 mg/dl (0.2-1.3); Total Protein 6.1 g/dl (6.3-8.2); eGFR 38.05
--- NOTE | 2024-02-06 06:54 | W.PN.HOSP.TC ---
Addendum entered and electronically signed by Arturo Fernandes MD 02/06/24 11:53:
Addendum
Pt is showing confusion, could be TME
urine was positive for bacteria, will do empiric Rocephin until culture is back
Will check bladder scan
Will follow
End
Original Note:
Today's Communication/Plan
-
- Medical noncompliance. Challenging issue
-Hyperglycemia secondary to dextrose infusion that is mixed with IV medications. Will do low-dose insulin sign scale. Hopefully we can wean off amiodarone drip today. Plan per cardiology to keep heparin and nitr gtt for today.
-Hold IV Lasix. Avoid hypotension
Assessment / Plan
Assessment / Plan
Physical Exam
General: Well Developed, Well Nourished and No Apparent Distress
HEENT: Normocephalic, Moist mucous membranes and Atraumatic
Respiratory: Clear
Cardiac: S1/S2 and Regular Rhythm; No Murmur or Rub
GI: Soft, Non Tender, Non Distended and Normal Bowel Sounds; No Organomegaly
Rectal: Deferred by Provider
Musculoskeletal: No Clubbing, No Cyanosis and No Edema
Skin: No Rash
Neuro: AO x 3 and Nonfocal/grossly intact
Psych: Calm
# Medical noncompliance.
Challenging issue. No guarantee the patient will be compliant with his medications. Will eventually discharge to custodial or with home care services.
# NSTEMI
known CAD
No worsening chest pain
troponin went up to 133 from 4.7 upon admission
c//w IV heparin gtt, nitro gtt, aspirin, Plavix, BB
Echocardiogram showed LVEF 25- 30%. Global hypokinesis with apical echogenicities. Reduced RV function. Mild MR, mild TR.
[facility] 02/04 showed severe LAD disease. Status post complex LAD stenting.
Appreciate cardiology help
# NSVT
c/w amiodarone drip for now.
# Acute kidney injury. Hold Lasix. Status massive MN and decreased LV function
# Ischemic hepatitis secondary to MN and depressed cardiac output
# Persistent atrial fibrillation with rapid ventricular response
Better controlled with amiodarone beta-blockers
# Essential (primary) hypertension
Avoid hypotension
# Leukocytosis likely stress reaction
-WBC around 30.
-Patient is afebrile
-Continue to monitor
# Elevated D-dimer
-Ultrasound of lower extremities pending
# DVT prophylaxis
-Heparin
# CODE STATUS
-Full code. He wanted limited code and only for one cycle of CRP if needed, no prolonged life support if needed.
# Hyperglycemia secondary to dextrose infusion that is mixed with IV medications. Will do low-dose insulin sign scale. Hopefully we can wean off amiodarone drip today
Total time spent to see the patient, examine the patient on the floor, review data and lab results, discuss treatment plan with patient, nursing staff around 55 minutes
Anticipated Discharge: > 48 hours
Subjective/Interval History
-
Date of Service: February 06, 2024
Objective Data
-
Labs:
Laboratory Results
02/06/24 02/06/24
05:07 12:00
WBC 30.6 H
Hgb 13.8
Hct 41.2
Plt Count 149
APTT 59.1 H Pending
Sodium 135
Potassium 4.8
Chloride 99
Carbon Dioxide 23
BUN 58 H
Creatinine 1.8 H
Glucose 264 H
Calcium 8.3 L
Total Bilirubin 3.7 H
AST 677 H*
ALT 191 H
Alkaline Phosphatase 91
Vital Signs:
Vital Signs
Temp Pulse Resp BP Pulse Ox
97.8 F 84 22 105/87 97
02/06/24 04:00 02/06/24 06:00 02/06/24 06:00 02/06/24 06:00 02/06/24 06:00
I&O
02/04/24 02/05/24 02/06/24
06:59 06:59 06:59
Intake Total 528.9 / 528.9
Output Total 100 / 100 450 / 450
Balance -100 / -100 78.9 / 78.9
[2024-02-06] MEDS: TOPROL XL 25 MG PO ×2 (07:47→21:01)
[2024-02-06] MEDS: LOW STRENGTH ASPIRIN 81 MG PO (07:47)
[2024-02-06] MEDS: PROTONIX 40 MG PO (07:47)
[2024-02-06] MEDS: LASIX 80 MG IV (07:47)
[2024-02-06] MEDS: PLAVIX 600 MG PO (07:47)
[2024-02-06] MEDS: ZOFRAN 4 MG IV (08:00)
--- NOTE | 2024-02-06 08:33 | PTCARENOTE ---
assumed care of pt from previous shift ryland GREGORIO on tele w HR 80's, bp 110/86, + peripheral pulses via doppler, pt denies CP. Lungs diminished w fine crackles at left base, pox 98% on 4L NC. Pt denies nausea, meds crushed and taken with yogurt.
Condom catheter in place, steve urine. PIV x3 w sites intact. Right groin cardiac cath site ecchymotic, soft w dressing intact. Mouth care provided. Pt oriented to person and place, forgetful to time and situation. Call emerson system and fall
precautions reviewed. Bed alarm maintained.
DRIPS: Heparin 1200 units/ hr
Amiodarone 0.5 mg/min
Nitro 15mcg/min
--- NOTE | 2024-02-06 09:05 | PTCARENOTE ---
IS reviewed w the pt. Pt was able to demonstrate correct use.
--- NOTE | 2024-02-06 09:16 | W.PN.CARDCBS ---
Addendum entered and electronically signed by Agustina Carlton PA-C 02/06/24 14:39:
discussed with patient's daughter Fatmata and updated via telephone for 13:05. she is contemplating coming to visit her dad however does not want to stress him out or burden him with her visit. we reviewed results of echo and his current medications.
we discussed that his life may look different moving forward from this event (given that prior to admission he was very independent and lived alone). will continue to update her throughout hospital course.
Original Note:
Today's Communication / Plan
-
Continue supportive care
Reassess IV Amio later today
Continue heparin and nitrates for now
Follow blood pressure
Follow LFTs
Postcatheterization care with antiplatelet therapy
Hold on lipid-lowering for now given LFT abnormality continue to reassess
Impression / Plan
-
PCP:
Primary managed services sales consultant: Jude Guerrero MD
Impression:
Acute [place]
Cardiogenic shock
A-fib with rapid ventricular response/underlying permanent atrial fibrillation
Nonsustained VT
New heart failure with reduced ejection fraction ejection fraction 25 to 30%. Also reduced right ventricular systolic function.
h/o CAD s/p inf [place] w/ JAZMÍN x 2 RCA 2015, LAD BMS stent 2010
Elevated LFTs
Renal insufficiency
Elevated white blood count
Right bundle branch block
Chest pain
Previous cardiovascular studies:
-Echocardiogram 02/05/2024 with asymmetric septal hypertrophy. Ejection fraction 25 to 30%. Global hypokinesis with apical akinesis. Reduced RV systolic function. Mild MR. Mild TR. PA pressure 25 mmHg.
-Cardiac catheterization 02/05/2024 complex stenting of LAD with overlapping 3 x 30 mm and 2.25 x 38 mm Mc[place]rew stents. No reflow that required multiple rounds of adenosine, nicardipine and epinephrine. No distal dissection. LVEDP 27. RCA 30%
in-stent restenosis. PDA 60% stenosis with mid PDA 60% stenosis and distal PDA 80% stenosis. 70% stenosis of the posterolateral branch.
Cardiac cath 08/31/2015: Widely patent proximal LAD stent without significant restenosis, mild luminal irregularities mid LAD. Circumflex mild luminal irregularities. RCA: Mid 60 to 70% stenosis, 95 distal stenosis proximal to takeoff of right PDA.
Right PDA 30%, distal right posterior lateral 50%. Acute marginal arising from mid RCA 80% stenosis. Status post JAZMÍN distal RCA, mid RCA
Cardiac cath 08/31/2010: 90% proximal LAD, followed by 80% LAD. Small OM1 branch with 75% proximal stenosis. Status post PTCA bare-metal stent to proximal LAD
Stress echo 04/03/2020: Normal, low exercise tolerance, 4.5 METS EF 55 to 60%
Echo 09/01/2015: EF 50%, mild concentric LVH, mild aortic sclerosis
Labs 02/05/2024: Na 138, K 4.5, BUN 30, creat 1.3, ast 662, alt 83, BNP 1790
LDL 107, HDL 53, trig 80, tchol 176
Plan:
-Patient with myocardial infarction status post LAD stent with no reflow phenomenon treated aggressively. Cardiogenic shock.
Continue postcatheterization care
Continue heparin, IV nitroglycerin, aspirin and clopidogrel
Continue to reassess status given cardiogenic shock. Blood pressure currently stable. Although critically ill patient appears to be perfusing.
-Volume overload and new heart failure with reduced ejection fraction in the setting of myocardial infarction.
Eventual guideline directed treatment for heart failure with reduced ejection fraction limited currently by blood pressure and renal insufficiency. Continue to reassess.
-Permanent atrial fibrillation
Continue IV heparin. Currently rate controlled. EKG abnormal but stable.
For now amiodarone for rate control. Consider discontinuation of amiodarone later today.
-Abnormal LFTs
Likely secondary to shock follow. Also defer to primary service.
-Renal insufficiency likely secondary to shock.
Follow
-NSVT
Telemetry currently stable.
Consider discontinuation of amiodarone later today.
-Hyperlipidemia
Hold on lipid-lowering for now continue to reassess. Abnormal LFTs noted. Consider starting Zetia tomorrow.
Discussed with nursing. Start incentive spirometry. Patient remains critically ill. 31 minutes total critical care time.
Progress Note - Calculator Operator
Subjective
Date of Service: February 06, 2024
No chest pain but some nausea this morning.
Objective
Labs:
02/06/24 05:07
02/06/24 05:07
Labs
Hgb 13.8 g/dL (13.0-18.0) 02/06/24 05:07
Hct 41.2 % (39.0-52.0) 02/06/24 05:07
Plt Count 149 10^3/uL (130-400) 02/06/24 05:07
APTT 59.1 Sec (23.4-35.0) H 02/06/24 05:07
Sodium 135 mmol/L (135-145) 02/06/24 05:07
Potassium 4.8 mmol/L (3.5-5.1) 02/06/24 05:07
BUN 58 mg/dl (9-20) H 02/06/24 05:07
Creatinine 1.8 mg/dL (0.7-1.3) H 02/06/24 05:07
Glucose 264 mg/dl (70-99) H 02/06/24 05:07
Troponins
02/04/24 02/04/24 02/04/24
16:08 21:11 23:34
Troponin I 4.720 H* 19.200 H* D 49.000 H* D
02/05/24 02/05/24 02/05/24
05:58 11:00 11:30
Troponin I 133.000 H* D 185.000 H* D Cancelled
02/05/24 02/05/24
17:15 23:24
Troponin I 345.000 H* D 225.000 H* D
Vital Signs and I&O:
Vital Signs
Temp Pulse Resp BP Pulse Ox
98 F 84 23 101/75 97
02/06/24 07:00 02/06/24 09:00 02/06/24 09:00 02/06/24 09:00 02/06/24 09:00
Vital Signs
Temp Pulse Resp BP Pulse Ox
98 F 84 23 101/75 97
02/06/24 07:00 02/06/24 09:00 02/06/24 09:00 02/06/24 09:00 02/06/24 09:00
Intake & Output
02/04/24 02/05/24 02/06/24 02/07/24
06:59 06:59 06:59 06:59
Intake Total 528.9 / 559.9 93.0 / 93.0
Output Total 100 / 100 450 / 450
Balance -100 / -100 78.9 / 109.9 93.0 / 93.0
Physical Exam
Physical Exam
General: Ill-appearing man
Heart: Distant heart sounds irregularly irregular
Lungs: Crackles at the bases bilateral
Abdomen: Normal bowel sounds, soft, non-tender, distended.
Extremities: No clubbing, cyanosis or and trace to +1 edema bilaterally.
Neuro: Grossly nonfocal, awake, alert
--- NOTE | 2024-02-06 11:14 | CM ---
Reviewed chart. Met with Mr. Mukherjee to review discharge plans. He states prior to admission he resides alone in an apartment. He states prior to admission he ambulates with a single point cane. He states he does not have a prescription plan and
pay out of pocket for medications. He states he has never been to a SNF/Rehab. or had VNA Services. Will need to see his current functional level to see if he has any skilled care needs. Medical work-up in progress. The discharge plan s to go to
SNF/Rehab. if indicated when medically stable.
--- NOTE | 2024-02-06 11:32 | PTCARENOTE ---
Multiple incont care provided. Pt's daughter updated via telephone.
[2024-02-06 12:18] LABS: Glucose - Point of Care 122 mg/dl (70-99)
[2024-02-06] MEDS: STERILE WATER FOR INJECTION 10 ML IV (12:18)
[2024-02-06] MEDS: ROCEPHIN 1000 MG IV (12:18)
[2024-02-06 12:30] LABS: APTT 79.8 Sec (23.4-35.0)
--- NOTE | 2024-02-06 12:30 | PTCARENOTE ---
UA result addressed w hospitalist. Abx administered as ordered.
--- NOTE | 2024-02-06 13:48 | PTCARENOTE ---
amiodarone infusion discontinued by cardiology LUCIE. Infusion stopped and IV line removed per protocol.
[2024-02-06 16:30] LABS: Glucose - Point of Care 113 mg/dl (70-99)
[2024-02-06 17:44] LABS: APTT 62.7 Sec (23.4-35.0)
--- NOTE | 2024-02-06 20:00 | PTCARENOTE ---
Assumed care of the patient at 1900. Patient in bed, sleeping but aroused to verbal stimulus, AOx3 but confused/forgetful. Afib on the monitor; rate 70-80's, palpable radial pulses, doppler B/L pedal pulses, extremities warm, no edema. On 2LNC,
lungs dim at the bases. Tolerated PO medications, offered water, no nausea reported. Condom cath in place draining yellow urine. R groin site intact, old drainage, ecchymotic; R knee scabbed. RAC18 and R hand/wrist #[id number]. Nitro and heparin gtt
running. Heparin titrated per protocol. See worklist for nursing interventions.
[2024-02-06] MEDS: HEPARIN 25000 UNITS/250 ML IV (20:56)
[2024-02-06 22:19] LABS: Glucose - Point of Care 116 mg/dl (70-99)
[2024-02-07] VITALS (44 sets, daily range): BP systolic 89–124; BP diastolic 66–98; BMI 30.5
--- NOTE | 2024-02-07 | PTCARENOTE ---
Patient intermittently incontinent, urinal offered, turned/changed PRN. No acute events, assessment unchanged, patient sleeping in bed comfortably.
[2024-02-07 00:59] LABS: APTT 71.4 Sec (23.4-35.0)
--- NOTE | 2024-02-07 04:00 | PTCARENOTE ---
Patient sleeping. Reoriented frequently upon awakening, assistance with urinal provided. Assessment unchanged, VSS.
[2024-02-07 06:34] LABS: Hematocrit 40.5 % (39.0-52.0); Hemoglobin 13.9 g/dL (13.0-18.0); Mean Corp Hgb Conc. 34.3 g/dL (33.0-37.0); Mean Corpuscular Hgb 33.1 pg (27.0-31.0); Mean Corpuscular Volume 96.4 fL (80.0-94.0); Mean Platelet Volume 11.6 fL (7.4-10.4); Platelet Count 129 10^3/uL (130-400); Red Cell Dist. Width 14.4 % (11.5-14.5); White Blood Cell Count 27.9 10^3/uL (4.8-10.8)
--- NOTE | 2024-02-07 06:36 | W.PN.HOSP.TC ---
Addendum entered and electronically signed by Arturo Fernandes MD 02/07/24 14:22:
Addendum to my earlier A/P
Will order PT/OT/Speech
Turn off heparin, Nitroglycerin drips.
will start lower dose Eliquis tonight
End
Original Note:
Today's Communication/Plan
-
Hope we can wean off heparin and nitro gtt
Start PT/ OT when possible
Might need oral amiodarone
will do 5 days course of Rocephin
500 cc of NS today , slow rate, avoid Lasix. No retention noted on bladder scan
Assessment / Plan
Assessment / Plan
Physical Exam
General: Well Developed, Well Nourished and No Apparent Distress
HEENT: Normocephalic, Moist mucous membranes and Atraumatic
Respiratory: Clear
Cardiac: S1/S2 and Regular Rhythm; No Murmur or Rub
GI: Soft, Non Tender, Non Distended and Normal Bowel Sounds; No Organomegaly
Rectal: Deferred by Provider
Musculoskeletal: No Clubbing, No Cyanosis and No Edema
Skin: No Rash
Neuro: AO x 3 and Nonfocal/grossly intact
Psych: Calm
# Medical noncompliance.
Challenging issue. No guarantee the patient will be compliant with his medications. Will eventually discharge to half-way or with home care services.
# NSTEMI
known CAD
No chest pain in last 48 hours
s/p IV heparin gtt, nitro gtt, aspirin, Plavix, BB. Can do Eliquis
Echocardiogram showed LVEF 25- 30%. Global hypokinesis with apical echogenicities. Reduced RV function. Mild MR, mild TR.
[facility] 02/04 showed severe LAD disease. Status post complex LAD stenting.
Appreciate cardiology help
# NSVT
off amiodarone drip, on BB
# TME due to possible UTI & FL, urine culture is no growth, will do empiric 5 days course of Abx due to positive urinalysis.
# Acute kidney injury due to massive FL and decreased LV function. Hold Lasix. creatinine went up to 2
will do small volume IVF
# Ischemic hepatitis secondary to FL and depressed cardiac output
LFT is improving
No abd pain
No nausea
# Persistent atrial fibrillation with rapid ventricular response
Better controlled with beta-blockers
Post Amiodarone gtt, might need oral amiodarone
# Essential (primary) hypertension
Avoid hypotension
# Leukocytosis likely stress reaction
-WBC around 30, starting to come down. Pt seems to have chronic leukocytosis. Will need OP evaluation.
-Patient is afebrile
-Continue to monitor
# Elevated D-dimer due to FL
-Ultrasound of lower extremities negative
# DVT prophylaxis
-Heparin
# CODE STATUS
-Full code. He wanted limited code and only for one cycle of CRP if needed, no prolonged life support if needed.
# Hyperglycemia secondary to dextrose infusion that is mixed with IV medications. Will do low-dose insulin sign scale. Hopefully we can wean off amiodarone drip today
Total time spent to see the patient, examine the patient on the floor, review data and lab results, discuss treatment plan with patient, nursing staff around 55 minutes
Anticipated Discharge: 24 - 48 hours
Subjective/Interval History
-
Date of Service: February 07, 2024
No worsening confusion over night
Patient denies chest pain
Objective Data
-
Labs:
Laboratory Results
02/07/24 02/07/24 02/07/24
00:41 05:33 07:15
WBC 27.9 H
Hgb 13.9
Hct 40.5
Plt Count 129 L
APTT 71.4 H Pending
Sodium Pending
Potassium Pending
Chloride Pending
Carbon Dioxide Pending
BUN Pending
Creatinine Pending
Glucose Pending
Calcium Pending
Total Bilirubin Pending
AST Pending
ALT Pending
Alkaline Phosphatase Pending
Vital Signs:
Vital Signs
Temp Pulse Resp BP Pulse Ox
98.6 F 80 19 102/81 96
02/07/24 06:00 02/07/24 06:00 02/07/24 06:00 02/07/24 06:00 02/07/24 06:00
I&O
02/05/24 02/06/24 02/07/24
06:59 06:59 06:59
Intake Total 528.9 / 559.9 785.2 / 785.2
Output Total 100 / 100 450 / 450 845 / 845
Balance -100 / -100 78.9 / 109.9 -59.8 / -59.8
[2024-02-07 07:03] LABS: ALT (SGPT) 256 U/L (0-50); AST (SGOT) 337 U/L (17-59); Albumin 3.3 g/dl (3.5-5.0); Alkaline Phosphatase 102 U/L (38-126); Blood Urea Nitrogen 76 mg/dl (9-20); Calcium 8.5 mg/dl (8.4-10.2); Carbon Dioxide 25 mmol/L (22-30); Chloride 104 mmol/L (98-107); Estimated Creatinine Clearance 32 ml/min; Glucose 113 mg/dl (70-99); Potassium 4.2 mmol/L (3.5-5.1); Sodium 140 mmol/L (135-145); Total Bilirubin 2.7 mg/dl (0.2-1.3); Total Protein 6.2 g/dl (6.3-8.2); eGFR 31.63
--- NOTE | 2024-02-07 07:04 | DOWNTIME ---
There was a [employer] Client [employer] Para Professional Downtime on 02/07/2024 from 0100 to 02/07/2024 at 0350. Downtime documentation of patient's care, including medication administrations, has been reconciled in the electronic record per guidelines. Refer to the
patient's paper chart under the miscellaneous tab to see printed paper medication records and downtime forms.
[2024-02-07 07:23] LABS: APTT 116.7 Sec (23.4-35.0)
--- NOTE | 2024-02-07 08:00 | PTCARENOTE ---
Assumed care of patient from work force advisor RN. AAO x 3, flat affect, but answering questions appropriately. Needs encouragement to engage in conversation. A fib on monitor. received on 2 L 98%, able to wean to Room air 96%. No cough or sputum
noted. Abdomen soft and non tender. Incontinent of urine. Pulses weakly palpable. Nitro and heparin infusing. Plan for day discussed.
[2024-02-07 08:46] LABS: Glucose - Point of Care 112 mg/dl (70-99)
[2024-02-07] MEDS: LOW STRENGTH ASPIRIN 81 MG PO (08:49)
[2024-02-07] MEDS: PLAVIX 75 MG PO (08:49)
[2024-02-07] MEDS: PROTONIX 40 MG PO (08:49)
[2024-02-07] MEDS: TOPROL XL 25 MG PO ×2 (08:49→19:56)
--- NOTE | 2024-02-07 10:19 | PTCARENOTE ---
Pt having difficulty with swallowing pills, Attempted to give whole in applesauce but pt struggling to swallow, no coughing, gagging, pocketing, just unable to initiate swallow with pill in his mouth. Pt did tolerate pills crushed in applesauce,
but still needed significant time to swallow.
[2024-02-07] MEDS: NSS 500 IV (11:39)
--- NOTE | 2024-02-07 12:01 | PTCARENOTE ---
Resting in bed, turned and repositioned, voided with assistance in urinal. Remains extremely flat with his affect. Primary MD notified of issues with swallowing medications. Speech consult requested. VSS. Assessment unchanged from prior.
[2024-02-07] MEDS: STERILE WATER FOR INJECTION 10 ML IV (12:11)
[2024-02-07] MEDS: ROCEPHIN 1000 MG IV (12:11)
[2024-02-07] MEDS: HEPARIN 25000 UNITS/250 ML IV (14:17)
--- NOTE | 2024-02-07 14:26 | W.PN.CARDCBS ---
Today's Communication / Plan
-
Hemodynamic status slightly improved but tenuous
Okay to stop amiodarone and heparin
Eventual statin.
On Eliquis and Plavix, would continue aspirin for 7 to 10 days
Initiate GDMT as tolerated. Hypotension will make optimization difficult
Creatinine continues to rise. Consider renal consultation.
Hold furosemide for now, reassess BUN in AM. Check proBNP.
Impression / Plan
-
PCP:
Primary supervisor furnace room: Jude Guerrero MD
Impression:
Acute [place]
Cardiogenic shock
A-fib with rapid ventricular response/underlying permanent atrial fibrillation
Nonsustained VT
New heart failure with reduced ejection fraction ejection fraction 25 to 30%. Also reduced right ventricular systolic function.
h/o CAD s/p inf [place] w/ AJZMÍN x 2 RCA 2015, LAD BMS stent 2010
Elevated LFTs
Renal insufficiency
Elevated white blood count
Right bundle branch block
Chest pain
Previous cardiovascular studies:
-Echocardiogram 02/05/2024 with asymmetric septal hypertrophy. Ejection fraction 25 to 30%. Global hypokinesis with apical akinesis. Reduced RV systolic function. Mild MR. Mild TR. PA pressure 25 mmHg.
-Cardiac catheterization 02/05/2024 complex stenting of LAD with overlapping 3 x 30 mm and 2.25 x 38 mm [place] stents. No reflow that required multiple rounds of adenosine, nicardipine and epinephrine. No distal dissection. LVEDP 27. RCA 30%
in-stent restenosis. PDA 60% stenosis with mid PDA 60% stenosis and distal PDA 80% stenosis. 70% stenosis of the posterolateral branch.
Cardiac cath 08/31/2015: Widely patent proximal LAD stent without significant restenosis, mild luminal irregularities mid LAD. Circumflex mild luminal irregularities. RCA: Mid 60 to 70% stenosis, 95 distal stenosis proximal to takeoff of right PDA.
Right PDA 30%, distal right posterior lateral 50%. Acute marginal arising from mid RCA 80% stenosis. Status post JAZMÍN distal RCA, mid RCA
Cardiac cath 08/31/2010: 90% proximal LAD, followed by 80% LAD. Small OM1 branch with 75% proximal stenosis. Status post PTCA bare-metal stent to proximal LAD
Stress echo 04/03/2020: Normal, low exercise tolerance, 4.5 METS EF 55 to 60%
Echo 09/01/2015: EF 50%, mild concentric LVH, mild aortic sclerosis
Labs 02/05/2024: Na 138, K 4.5, BUN 30, creat 1.3, ast 662, alt 83, BNP 1790
LDL 107, HDL 53, trig 80, tchol 176
Plan:
He is not markedly symptomatic but is hemodynamically tenuous. He is receiving IV furosemide 80 mg a day and creatinine has risen to 2.1. Consider renal consultation.
Will hold furosemide and reassess in AM. Check proBNP.
We may need to decrease metoprolol.
ALT is rising, suggesting passive congestion from CHF. AST is dropping as this is a marker of his myocardial infarction.
Okay to stop heparin. Okay to stop amiodarone.
Begin Eliquis 5 mg twice daily. Currently on Plavix. Currently on aspirin. Would stop aspirin in 7 to 10 days.
Will need to start statin when LFTs are stabilized.
Progress Note - Document Analyst
Subjective
Date of Service: February 07, 2024:
78-year-old man with permanent atrial fibrillation and history of inferior VA 2016 treated with RCA stent, LAD stent in 2010 prior PCI, last seen in our office 2020, off meds except for aspirin, now with anterior VA treated with overlapping 2.25 and
3.0 Virg[place] stents, now with CHF and ejection fraction 25-30%. Some dyspnea. Peak troponin was 345.
PMH permanent A-fib, CAD with LAD stent 2010, IMI 2015 with 2 RCA stents, right bundle branch block, noncompliance,
Allergies: None
Current meds: Metoprolol ER 25 mg twice daily, aspirin 81 mg a day, Plavix 75 mg daily, Protonix, furosemide 80 mg a day, ceftriaxone, apixaban 2.5 twice daily, heparin and amiodarone have been stopped
101/72, pulse 72, respiratory 22, afebrile, no acute distress, lungs are relatively clear, distant heart tones without obvious murmurs JVD difficult to assess, some edema
EKG atrial fibrillation, low voltage, anterolateral VA, possible inferior VA, right bundle
White count 27.9, platelets 129, BUN and creatinine 76 and 2.1, creatinine is rising had been 1.1 on admission, AST is 337, ALT is 256, ALT is rising, AST is falling
Objective
Labs:
02/07/24 05:33
02/07/24 05:33
Labs
Hgb 13.9 g/dL (13.0-18.0) 02/07/24 05:33
Hct 40.5 % (39.0-52.0) 02/07/24 05:33
Plt Count 129 10^3/uL (130-400) L 02/07/24 05:33
APTT 116.7 Sec (23.4-35.0) H 02/07/24 07:02
Sodium 140 mmol/L (135-145) 02/07/24 05:33
Potassium 4.2 mmol/L (3.5-5.1) 02/07/24 05:33
BUN 76 mg/dl (9-20) H 02/07/24 05:33
Creatinine 2.1 mg/dL (0.7-1.3) H 02/07/24 05:33
Glucose 113 mg/dl (70-99) H 02/07/24 05:33
Troponins
02/04/24 02/04/24 02/04/24
16:08 21:11 23:34
Troponin I 4.720 H* 19.200 H* D 49.000 H* D
02/05/24 02/05/24 02/05/24
05:58 11:00 11:30
Troponin I 133.000 H* D 185.000 H* D Cancelled
02/05/24 02/05/24
17:15 23:24
Troponin I 345.000 H* D 225.000 H* D
Vital Signs and I&O:
Vital Signs
Temp Pulse Resp BP Pulse Ox
36.6 C 72 22 101/72 93
02/07/24 12:00 02/07/24 12:00 02/07/24 12:00 02/07/24 12:00 02/07/24 12:00
Vital Signs
Temp Pulse Resp BP Pulse Ox
36.6 C 72 22 101/72 93
02/07/24 12:00 02/07/24 12:00 02/07/24 12:00 02/07/24 12:00 02/07/24 12:00
Intake & Output
02/05/24 02/06/24 02/07/24 02/08/24
07:59 07:59 07:59 07:59
Intake Total 559.9 / 590.9 754.2 / 1144.2 767.3 / 767.3
Output Total 100 / 100 450 / 450 845 / 995 150 / 150
Balance -100 / -100 109.9 / 140.9 -90.8 / 149.2 617.3 / 617.3
Physical Exam
Physical Exam
See above
--- NOTE | 2024-02-07 14:57 | PTCARENOTE ---
Assist x 2 oob to chair using the rolling walker. Pt steady on feet for bulk of moving but slow to move and occasionally wobbly. MD contacted for PT/OT order, at this time NItro and heparin drips discontinued per MD order. Pt sitting in chair.
VSS assessment unchanged from prior otherwise
--- NOTE | 2024-02-07 16:00 | CM ---
Reviewed chart. Met with Mr. Mukherjee and his daughter to review discharge plans. We reviewed SNF/Rehab. Awaiting physical and occupational therapy evaluations to send referrals to SNF/Rehab. Prior to admission he resides alone in an apartment
Prior to admission he ambulated with a single point cane. He has never been to a SNF/Rehab or had VNA Services in the past. He does not have a prescription plan. Medical work-up in progress. The discharge plan is to go to see when bed available
when medically stable.
--- NOTE | 2024-02-07 17:05 | W.CON.NEPH ---
Consultation
-
Date/Time Consultation Requested: 02/07/24 1504
Date/Time Consultation Performed: 02/07/24 1715
Requesting Provider: Arturo Driscoll
Performing Provider: Ashlie Santa
Reason for Consultation: MAHENDRA
Medical History
-
Chief Complaint: CP
History of Present Illness:
78-year-old male with past medical history of SD with stenting to the RCA 08/2015,previous LAD stenting in 2010 on ASA, Permanent atrial fibrillation, non compliance, ischemic cardiomyopathy EF 55 to 60% who presented to the ED 02/04/2024 with
left-sided chest and arm pain with associated shortness of breath. He was noted to be in rapid A-fib and started on heparin and Cardizem drips. Trop started to increase and noted NSTEMI-started nitro gtt, echo showed EF 25-30% global hypokinesis
and apical echogenicities. he subsequently underwent LHC on 02/04 and had complex LAD stenting. He received lasix on 02/05 for LVEDP of 26. HIs BPs remains soft on low dose metoprolol. [place] dmit cr was 1.1, and 02/05 1.8 and today 2.1 hence
nephrology consulted. Lasix held today. LFTs are improving. He started on Rocephin for concern of UTI, and also got 500cc NS. He offers no cp, but mild sob. No n/v.No abd pain. no dysuria.
Past Medical History
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
Permanent atrial fibrillation
Laparoscopic cholecystectomy 2014
pancreatitis
Past Surgical History: Other (Cholecystectomy and Tonsilectomy)
Social History
Tobacco: Former Smoker (quit 12 yrs ago)
Alcohol: None
Drug: None
Employment: Retired
Family History
no ckd
Family History: Not Pertinent
Allergies / Home Medications
Allergy/AdvReac Type Severity Reaction Status Date / Time
No Known Allergies Allergy Unverified 02/04/24 15:49
�Medication �Instructions �Recorded �Confirmed �Type
aspirin 81 mg chewable tablet 567 mg PO DAILYPRN PRN chest pain 02/04/24 02/04/24 History
Review of Systems
-
All complete 12 point ROS have been inquired and found negative other than stated in HPI
Physical Exam
Vital Signs
Vital Signs
Temp Pulse Resp BP Pulse Ox
97.8 F 83 16 110/80 96
02/07/24 12:00 02/07/24 16:41 02/07/24 15:00 02/07/24 16:41 02/07/24 15:19
Lab Results
WBC 27.9 10^3/uL (4.8-10.8) H 02/07/24 05:33
RBC 4.20 10^6/uL (4.70-6.10) L 02/07/24 05:33
Hgb 13.9 g/dL (13.0-18.0) 02/07/24 05:33
Hct 40.5 % (39.0-52.0) 02/07/24 05:33
Plt Count 129 10^3/uL (130-400) L 02/07/24 05:33
Sodium 140 mmol/L (135-145) 02/07/24 05:33
Potassium 4.2 mmol/L (3.5-5.1) 02/07/24 05:33
Chloride 104 mmol/L (98-107) 02/07/24 05:33
Carbon Dioxide 25 mmol/L (22-30) 02/07/24 05:33
BUN 76 mg/dl (9-20) H 02/07/24 05:33
Creatinine 2.1 mg/dL (0.7-1.3) H 02/07/24 05:33
eGFR 31.63 02/07/24 05:33
Glucose 113 mg/dl (70-99) H 02/07/24 05:33
Calcium 8.5 mg/dl (8.4-10.2) 02/07/24 05:33
Oxq-E-Iwlitbyhjag Pept 1790 pg/ml 02/04/24 16:08
Albumin 3.3 g/dl (3.5-5.0) L 02/07/24 05:33
02/04/24:
CXR:
IMPRESSION:
Low lung volumes without focal airspace disease.
echo:
CONCLUSIONS
Asymmetric septal hypertrophy. Normal left ventricular wall thickness. Normal
left ventricular chamber size. Severely reduced left ventricular systolic
function. Left ventricular ejection fraction is 25-30% by visual assessment.
Global hypokinesis with apical akinesis.
Reduced right ventricular systolic function.
Mild mitral regurgitation.
Mild tricuspid regurgitation. Estimated pulmonary artery pressure of 25 mmHg.
Compared to the previous echo from May 2017, EF was 50-55% with no regional
wall motion abnormalities and mild MR and TR at that time.
Physical Exam
General: Awake, Alert, Oriented, AOx3, No Distress and Nontoxic
HEENT: EOMI, Anicteric and Facial Symmetry
Respiratory: Crackels (at bases), Normal Excursion and Nonlabored Respirations
Cardiac: S1/S2 and Regular Rate/Rhythm
Breast: Deferred by me
Abdomen: Soft, Nontender and Nondistended
Musculoskeletal: No Cyanosis and No Edema (trace)
Skin: No Rash
Neuro: Nonfocal/Grossly Intact
Psych: Mood/afflect pleasant and Appropriate
Data Reviewed
-
Radiology: Report Reviewed by me and Discussed with Patient
Labs: Labs Reviewed by me and Discussed with Patient
Assessment/Plan
-
IMP:
MAHENDRA
NSTEMI
known CAD
NSVT
TME due to possible UTI & SD
Ischemic hepatitis secondary to SD and depressed cardiac output
Persistent atrial fibrillation with rapid ventricular response
Essential (primary) hypertension
Leukocytosis
non compliance
Plan:
A/w NSTEMI s/p complex LAD stent 02/04
MAHENDRA-highly suspect cardiorenal(afib, low BPs, low flow state) and contrast exposure
recheck UA, check U eosinophils(to r/o atheroembolic process) , initial UA was with bacteria
check bladder scan, renal us pending
s/p 500cc NS today and holding lasix
suspect cr may have reached peak, monitor UOP
avoid nephrotoxins
given elevated LVEDP 27 on LHC , low threshold to resume lasix
BP are stable now on low dose BB
abx per primary mainly for leucocytosis, cbc with diff tomorrow
LFTs are improving
d/w pt
no emergent need of HD
[2024-02-07 17:34] LABS: Glucose - Point of Care 111 mg/dl (70-99)
--- NOTE | 2024-02-07 17:47 | PTCARENOTE ---
Pt attempting to get oob to use urinal without ringing for help, bed alarm ringing. Assisted to sit on side of bed, voided, Was slightly incontinent prior to RN arrival. PT then repositioned, linens changed, chg bath given. sitting up in bed
awaiting dinner
--- NOTE | 2024-02-07 19:30 | PTCARENOTE ---
Received pt from [facility]. Walking rounds completed. Pt assessment completed in bed. Pt is oriented to self, date and location. Confused at times, verbally reoriented. AFIB on monitor. HR:80's, BP: 112/85. Pulses palpable, - edema. Lungs clear,
diminished in bases. POX 96% RA. Pt incontinent at times, able to void in urinal when offered. NBS, abdomen soft, round, non-tender to touch. R groin site intact, old drainage, ecchymotic; R knee scabbed. 18g R AC and 22g R hand/wrist, no redness
or edema noted. Discussed plan of care with pt and daughter. Pt resting in bed.
[2024-02-07 19:43] LABS: Urine Albumin Trace (Neg - Trace); Urine Bilirubin Negative (Negative); Urine Character Clear (Clear); Urine Color Yellow; Urine Glucose Negative (Negative); Urine Ketone Negative (Negative); Urine Leukocyte Negative (Negative); Urine Nitrite Negative (Negative); Urine Occult Blood Negative (Negative); Urine Urobilinogen Negative (Neg - 1+)
[2024-02-07 19:50] LABS: APTT 29.1 Sec (23.4-35.0)
[2024-02-07 19:56] LABS: Protein/creatinine Ratio 0.1; Urine Protein 14 mg/dl; Urine Sodium < 5 mmol/L (30-90)
[2024-02-07] MEDS: ELIQUIS 5 MG PO (19:56)
[2024-02-07 20:18] LABS: Body Fluid for Eosinophils No Eosinophils seen
--- NOTE | 2024-02-07 22:17 | PTCARENOTE ---
Called into pt room. Pt complaining of chest pain 08/20. constant pressure. CTPA Tslina made aware. EKG obtained. Medications ordered. (See MAR). pt resting in bed. Will continue to monitor pt needs.
[2024-02-07] MEDS: NITROSTAT (SUBLINGUAL) 0.4 MG SL (22:22)
--- NOTE | 2024-02-07 23:00 | PTCARENOTE ---
VSS. Pt continues to have chest pain 5/10. CTPA Tslina bedside. Nitro gtt started. Morphine x1 given IV. (See MAR). Pt remains in bed. Will continue to monitor pt needs.
[2024-02-07] MEDS: MORPHINE SULFATE 1 MG IV (23:04)
[2024-02-07] MEDS: MAALOX PLUS 1 TABLET PO (23:29)
[2024-02-08] VITALS (52 sets, daily range): BP systolic 83–136; BP diastolic 61–95; PULSE 84; O2SAT 95; BMI 30.7
--- NOTE | 2024-02-08 00:15 | W.PN.UPDATE ---
Update Note
Progress Note Update
-@ 10:15 came in to [facility] pt for 08/20 chest pain. Initially, pt stated that it was there for 15 min prior to him calling, then recalled that CP started in the afternoon 02/06. He says that he was pain free in the morning 02/06. Pt states that it
feels like pressure, similar to his admission symptoms and points across upper chest. Denies any jaw, arm, back or abdominal pain, nausea or diaphoresis. It is not reproducible with palpation, deep breathing or movement. He denies any alleviating
factors and sitting up in bed hasn't improved the pain. Heart is irregular, no significant murmur or rub appreciated, no gallop. BP 124/98, hr 84 a-fib (chronic), pOx 99% on 2L. ECG: a-fib with known RBBB, ST elevations V2-V6, I, and avL and ST
depression in III. It is similar to prior ECGs on 02/05 and 02/04. Reviewed ECGs with Dr. Perdue. Pt does NOT appear in any distress.
-gave 1 sl Nitro and CP decreased to 4/10. Started iv Nitro and uptitrated to 40 (didn't tolerate Nitro @ 50 d/t BP). Gave 1 mg iv Morphine and Maalox. Pt stated that CP was the same 06/20 despite Nitro or Morphine.
-checked trop - 29.4 now (was 225 on 02/04)
-pt was evaluated by Dr. Perdue. Daughter is updated at bedside. Additional 2 mg Morphine was ordered. However, when nurse went to administer Morphine, pt was sleeping comfortably so Morphine was held. Nitro is currently at 20. BP 117/88, pOx 97
on 2L.
-avoiding NSAIDs d/t MAHENDRA. Careful with Tylenol d/t elevated LFTs (trending down)
-will monitor closely. NPO Thur in case of new or escalating sxs.
-once pt woke up, he stated feeling better overall, denied CP
--- NOTE | 2024-02-08 00:17 | W.PN.UPDATE ---
Update Note
Progress Note Update
Called to see patient with continued episodes of chest pain. Chest pain approximately 4 out of 10. Patient treated with IV nitroglycerin with minimal improvement. Pain slightly worse with inspiration.
EKG with A-fib, right bundle branch block and continued ST abnormalities in the anterolateral leads. Cath results reviewed.
Cardiac troponin improving and trending down still. Will continue to trend. Creatinine now up to 2.1.
Will continue to try to treat conservatively. Will continue IV nitro, and will give morphine 2 mg now and follow clinically.
Continue aspirin, Plavix, and Eliquis.
--- NOTE | 2024-02-08 04:22 | PTCARENOTE ---
VSS. Pt in AFIB on monitor. Pt denies chest pain, SOB, nausea, or pain. Morning labs obtained and sent. Bladder scan performed post void. Residual 40ml in bladder. Pt resting in bed. Will continue to monitor pt needs.
[2024-02-08 04:25] LABS: % Basophils 0.1 % (0-2); % Eosinophils 0.2 % (0-6); % Immature Granulocytes 0.7 % (0-0.5); % Lymphocytes 6.4 % (20.5-51.1); % Monocytes 7.8 % (1.7-9.3); % Neutrophils 84.8 % (42.2-75.2); Absolute Immature Granulocytes 0.1 10^3/uL (0-0.05); Absolute Lymphocytes 1.2 10^3/uL (1.2-3.4); Absolute Monocytes 1.5 10^3/uL (0.1-0.6); Absolute Neutrophils 16.2 10^3/uL (1.4-6.5); Hematocrit 40.3 % (39.0-52.0); Hemoglobin 13.7 g/dL (13.0-18.0); Mean Corpuscular Hgb 33.3 pg (27.0-31.0); Mean Corpuscular Volume 98.1 fL (80.0-94.0); Mean Platelet Volume 11.2 fL (7.4-10.4); Platelet Count 126 10^3/uL (130-400); Red Blood Cell Count 4.11 10^6/uL (4.70-6.10); Red Cell Dist. Width 14.3 % (11.5-14.5); White Blood Cell Count 19.1 10^3/uL (4.8-10.8)
[2024-02-08 05:01] LABS: NT-proBNP 17700 pg/ml
[2024-02-08 05:15] LABS: ALT (SGPT) 421 U/L (0-50); AST (SGOT) 323 U/L (17-59); Albumin 3.1 g/dl (3.5-5.0); Alkaline Phosphatase 96 U/L (38-126); Blood Urea Nitrogen 78 mg/dl (9-20); Calcium 8.2 mg/dl (8.4-10.2); Carbon Dioxide 24 mmol/L (22-30); Chloride 106 mmol/L (98-107); Estimated Creatinine Clearance 39 ml/min; Glucose 109 mg/dl (70-99); Potassium 4.1 mmol/L (3.5-5.1); Sodium 139 mmol/L (135-145); Total Bilirubin 2.2 mg/dl (0.2-1.3); Total Protein 5.9 g/dl (6.3-8.2); eGFR 40.75
--- NOTE | 2024-02-08 06:45 | W.PN.HOSP.TC ---
Today's Communication/Plan
-
Will wean off Nitro gtt, consider isosorbide dinitrate
c/w Eliquis, aspirin, Plavix
MAHENDRA due to hypotension episodes ( avoid ), given IVF on 02/06
Will follow
Ok for diet
Assessment / Plan
Assessment / Plan
Physical Exam
General: Well Developed, Well Nourished and No Apparent Distress
HEENT: Normocephalic, Moist mucous membranes and Atraumatic
Respiratory: Clear
Cardiac: S1/S2 and Regular Rhythm; No Murmur or Rub
GI: Soft, Non Tender, Non Distended and Normal Bowel Sounds; No Organomegaly
Rectal: Deferred by Provider
Musculoskeletal: No Clubbing, No Cyanosis and No Edema
Skin: No Rash
Neuro: AO x 3 and Nonfocal/grossly intact
Psych: Calm
# Chest pain over night, not this morning
Troponin was lower than previous readings
EKG abnormal but not different from prior
He was given Morphine and Nitroglycerin gtt
# Acute kidney injury due to massive AZ and decreased LV function. Hold Lasix. creatinine went up to 2 but started to come down , post IVF
Bladder scan no retention
Renal US no hydronephrosis
Urinalysis not abnormal
Low urine sodium
continue to avoid nephrotoxic and low BP episodes.
# Medical noncompliance.
Challenging issue. No guarantee the patient will be compliant with his medications. Will eventually discharge to [facility] or with home care services.
# NSTEMI
known CAD
No chest pain in last 48 hours
s/p IV heparin gtt, nitro gtt, aspirin, Plavix, BB. Now on BID Eliquis
Echocardiogram showed LVEF 25- 30%. Global hypokinesis with apical echogenicities. Reduced RV function. Mild MR, mild TR.
[facility] 02/04 showed severe LAD disease. Status post complex LAD stenting.
Appreciate cardiology help
# NSVT
off amiodarone drip, on BB
# TME due to possible UTI & AZ, urine culture is no growth, will do empiric 5 days course of Abx due to positive urinalysis.
# Ischemic hepatitis secondary to AZ and depressed cardiac output
LFT is improving
No abd pain
No nausea
# Persistent atrial fibrillation with rapid ventricular response
Better controlled with beta-blockers
Post Amiodarone gtt, might need oral amiodarone
# Essential (primary) hypertension
Avoid hypotension
# Leukocytosis likely stress reaction
Coming down
-WBC around 30, starting to come down. Pt seems to have chronic leukocytosis. Will need OP evaluation.
-Patient is afebrile
-Continue to monitor
# Elevated D-dimer due to AZ
-Ultrasound of lower extremities negative
# DVT prophylaxis
-Heparin
# CODE STATUS
-Full code. He wanted limited code and only for one cycle of CRP if needed, no prolonged life support if needed.
# Hyperglycemia secondary to dextrose infusion that is mixed with IV medications. Will do low-dose insulin sign scale. Hopefully we can wean off amiodarone drip today
Total time spent to see the patient, examine the patient on the floor, review data and lab results, discuss treatment plan with patient, nursing staff around 55 minutes
Anticipated Discharge: 24 - 48 hours
Subjective/Interval History
-
Date of Service: February 08, 2024
Denies chest pain this morning
Objective Data
-
Labs:
Laboratory Results
02/07/24 02/08/24
19:33 04:16
WBC 19.1 H
Hgb 13.7
Hct 40.3
Plt Count 126 L
APTT 29.1
Sodium 139
Potassium 4.1
Chloride 106
Carbon Dioxide 24
BUN 78 H
Creatinine 1.7 H
Glucose 109 H
Calcium 8.2 L
Total Bilirubin 2.2 H
AST 323 H
ALT 421 H
Alkaline Phosphatase 96
Vital Signs:
Vital Signs
Temp Pulse Resp BP Pulse Ox
98.4 F 89 18 110/95 94
02/08/24 04:21 02/08/24 02:30 02/08/24 04:21 02/08/24 02:15 02/08/24 04:21
I&O
02/06/24 02/07/24 02/08/24
06:59 06:59 06:59
Intake Total 528.9 / 559.9 785.2 / 785.2 1727.3 / 1727.3
Output Total 450 / 450 845 / 845 875 / 875
Balance 78.9 / 109.9 -59.8 / -59.8 852.3 / 852.3
--- NOTE | 2024-02-08 08:45 | PTCARENOTE ---
Assumed care of patient at 0700. Pt is drowsy, awakens to voice. Able to state name, , place, and time. Pt Afib with HR 70's-80's. BP 110/90 MAP 98. Pulse oximetry 95% on room air. Pt tolerating PO diet. Received pt on Nitro 20mcg/min. Pt reports
no chest pain at this time.
[2024-02-08] MEDS: PLAVIX 75 MG PO (08:59)
[2024-02-08] MEDS: PROTONIX 40 MG PO (08:59)
[2024-02-08] MEDS: LOW STRENGTH ASPIRIN 81 MG PO (08:59)
[2024-02-08] MEDS: ELIQUIS 5 MG PO ×2 (08:59→20:37)
[2024-02-08] MEDS: TOPROL XL 25 MG PO ×2 (08:59→20:37)
[2024-02-08 09:07] LABS: Glucose - Point of Care 91 mg/dl (70-99)
--- NOTE | 2024-02-08 10:49 | PTOTSP ---
ST Dysphagia Evaluation
Oropharyngeal function appears intact at the bedside; reported issues with swallowing pills alleviated with strategy use
Pt received awake/alert at the bedside. RN present for rx adminstration. Took whole/single pills with sips of water; at times took a while for pt to complete pill transfer from a-p in oral cavity. States sometime he 'gets in his head' about getting
pills down. Once pill transfer initiated swallow appears prompt. No overt s/sx of aspiration observed. Denied any difficulty with meals current diet is regular solids/thin liquids. Advised posterior pill placement on tongue followed by immediate sip
of water to avoid the pill dissolving and adhering to surface of tongue.
Recommendations
1. May remain on regular solids/thin liquids
2. Standard aspiration and reflux precautions (on protonix)
3. Meds oral per pt preference and RN discretion (whole/single with plenty of water by sips from straw)
4. No further acute ST tx indicated
--- NOTE | 2024-02-08 12:19 | W.PN.NEPH.PH ---
Today's Communication / Plan
-
follow labs off IVF, prn lasix
Assessment/Plan
-
IMP:
MAHENDRA
NSTEMI
known CAD
NSVT
TME due to possible UTI & PA
Ischemic hepatitis secondary to PA and depressed cardiac output
Persistent atrial fibrillation with rapid ventricular response
Essential (primary) hypertension
Leukocytosis
non compliance
Plan:
A/w NSTEMI s/p complex LAD stent 02/04
MAHENDRA-highly suspect cardiorenal(afib, low BPs, low flow state) and contrast exposure
bland UA and U na is low <5, cr improving post IVF
neg U eosinophils, no hydro on US, mild cortical atrophy
bladder scan shows 40cc, non oliguric
avoid nephrotoxins
given elevated LVEDP 27 on LHC, BNP high , low threshold to resume lasix
BP are stable now on low dose BB and nitro gtt-weaning
abx per primary mainly for leucocytosis-improving
LFTs are elevated
CP mgt per cards
d/w pt
-
-
Date of Service: February 08, 2024
CC / HPI / ROS
-
Chief Complaint:
MAHENDRA
History of Present Illness:
cr improving to 1.7, non oliguric
wt slightly up, on RA
CP overnight and started on nitro gtt , trop improving
Review of Systems:
no active CP, reports resolved
sob on exertion
no n/v
Labs
-
Labs:
WBC 19.1 10^3/uL (4.8-10.8) H 02/08/24 04:16
RBC 4.11 10^6/uL (4.70-6.10) L 02/08/24 04:16
Hgb 13.7 g/dL (13.0-18.0) 02/08/24 04:16
Hct 40.3 % (39.0-52.0) 02/08/24 04:16
Plt Count 126 10^3/uL (130-400) L 02/08/24 04:16
Sodium 139 mmol/L (135-145) 02/08/24 04:16
Potassium 4.1 mmol/L (3.5-5.1) 02/08/24 04:16
Chloride 106 mmol/L (98-107) 02/08/24 04:16
Carbon Dioxide 24 mmol/L (22-30) 02/08/24 04:16
BUN 78 mg/dl (9-20) H 02/08/24 04:16
Creatinine 1.7 mg/dL (0.7-1.3) H 02/08/24 04:16
eGFR 40.75 02/08/24 04:16
Glucose 109 mg/dl (70-99) H 02/08/24 04:16
Calcium 8.2 mg/dl (8.4-10.2) L 02/08/24 04:16
Xbn-T-Yngusmgntww Pept 90985 pg/ml 02/08/24 04:16
Albumin 3.1 g/dl (3.5-5.0) L 02/08/24 04:16
Physical Exam
-
Vital Signs:
Vital Signs
Temp Pulse Resp BP Pulse Ox
97.7 F 73 20 114/73 93
02/08/24 08:00 02/08/24 09:00 02/08/24 08:00 02/08/24 09:00 02/08/24 09:00
Cardiovascular:: Regular rate and rhythm
Lung Excursion:: Normal (decreased)
Abdomen:: Soft
Extremity Edema:: None: Bilateral:
Mcwilliams Catheter: No
[2024-02-08] MEDS: ROCEPHIN 1000 MG IV (13:08)
[2024-02-08] MEDS: STERILE WATER FOR INJECTION 10 ML IV (13:08)
--- NOTE | 2024-02-08 13:10 | PTCARENOTE ---
Pt worked with cardiac rehab. Tolerated well. Currently OOB in chair. Currently down to Nitro 5mcg/min, remains chest pain free. BP 109/84
--- NOTE | 2024-02-08 13:18 | W.PN.CARDCBS ---
Today's Communication / Plan
-
Resume IV Lasix
Await chest x-ray
Can transfer to IVU
Impression / Plan
-
PCP:
Primary supplier quality: Jude Guerrero MD
Impression:
Acute PA
Cardiogenic shock
A-fib with rapid ventricular response/underlying permanent atrial fibrillation
Nonsustained VT
New heart failure with reduced ejection fraction ejection fraction 25 to 30%. Also reduced right ventricular systolic function.
h/o CAD s/p inf PA w/ JAZMÍN x 2 RCA 2015, LAD BMS stent 2010
Elevated LFTs
Renal insufficiency
Elevated white blood count
Right bundle branch block
Chest pain
Previous cardiovascular studies:
Cardiac cath 08/31/2015: Widely patent proximal LAD stent without significant restenosis, mild luminal irregularities mid LAD. Circumflex mild luminal irregularities. RCA: Mid 60 to 70% stenosis, 95 distal stenosis proximal to takeoff of right PDA.
Right PDA 30%, distal right posterior lateral 50%. Acute marginal arising from mid RCA 80% stenosis. Status post JAZMÍN distal RCA, mid RCA
Cardiac cath 08/31/2010: 90% proximal LAD, followed by 80% LAD. Small OM1 branch with 75% proximal stenosis. Status post PTCA bare-metal stent to proximal LAD
Stress echo 04/03/2020: Normal, low exercise tolerance, 4.5 METS EF 55 to 60%
Echo 09/01/2015: EF 50%, mild concentric LVH, mild aortic sclerosis
Cardiac catheterization 02/05/2024 complex stenting of LAD with overlapping 3 x 30 mm and 2.25 x 38 mm [place] stents. No reflow that required multiple rounds of adenosine, nicardipine and epinephrine. No distal dissection. LVEDP 27. RCA 30%
in-stent restenosis. PDA 60% stenosis with mid PDA 60% stenosis and distal PDA 80% stenosis. 70% stenosis of the posterolateral branch.
Echocardiogram 02/05/2024 with asymmetric septal hypertrophy. Ejection fraction 25 to 30%. Global hypokinesis with apical akinesis. Reduced RV systolic function. Mild MR. Mild TR. PA pressure 25 mmHg.
Plan:
Appreciate renal input. Creatinine has dropped to 1.7.
However, proBNP is 17,700. This is not surprising given that peak troponin was 345.
Will resume IV Lasix. Check chest x-ray.
His chest pain is likely not ischemic and may reflect pericarditis. Currently he is symptom-free. Will stop IV nitroglycerin.
At present, cannot uptitrate metoprolol or add URSULA/ARB, etc.
Can transfer to IVU. However it is conceivable he may need pressor or inotropic support. Hold off for now.
Patient will be at risk for adverse events, refractory CHF, myocardial rupture, advanced AV block, etc. He will require placement. I was piotr with patient and daughter regarding his situation.
Consider follow-up echo
Continue Eliquis, aspirin Plavix, stop aspirin in 7 to 10 days
Progress Note - [employer]
Subjective
Date of Service: February 08, 2024:
He had chest discomfort overnight, now comfortable, on IV nitroglycerin
PMH: Permanent atrial fibrillation, inferior PA with RCA drug-eluting stents 2015, LAD bare-metal stent 2010, CKD, right bundle branch block
Current medications: Ceftriaxone, IV nitro, metoprolol ER 25 twice daily, aspirin 81 g a day, clopidogrel 75 mg daily, pantoprazole 40 mg a day, apixaban 5 mg twice daily, patient had been receiving furosemide 80 mg a day, currently on hold, nitro
is at 5 mcg/min.
95/69, 126/85, pulse 80, respiratory 20, sats 93%, weight is 91.6 kg, unchanged no distress, diminished breath sounds, distant heart tones, JVD hard to assess 1+ edema abdomen benign, daughter at bedside
White count is 19.1, platelets are 126, hemoglobin is 13.7, potassium is 4.1, BUN and creatinine are 78 and 1.7, troponin now 29.4, proBNP is 17,700, had been 1790 chest x-ray: Pending
Objective
Labs:
02/08/24 04:16
02/08/24 04:16
Labs
Hgb 13.7 g/dL (13.0-18.0) 02/08/24 04:16
Hct 40.3 % (39.0-52.0) 02/08/24 04:16
Plt Count 126 10^3/uL (130-400) L 02/08/24 04:16
APTT 29.1 Sec (23.4-35.0) 02/07/24 19:33
Sodium 139 mmol/L (135-145) 02/08/24 04:16
Potassium 4.1 mmol/L (3.5-5.1) 02/08/24 04:16
BUN 78 mg/dl (9-20) H 02/08/24 04:16
Creatinine 1.7 mg/dL (0.7-1.3) H 02/08/24 04:16
Glucose 109 mg/dl (70-99) H 02/08/24 04:16
Troponins
02/05/24 02/05/24 02/05/24
11:30 17:15 23:24
Troponin I Cancelled 345.000 H* D 225.000 H* D
02/07/24
22:38
Troponin I 29.400 H*
Vital Signs and I&O:
Vital Signs
Temp Pulse Resp BP Pulse Ox
36.5 C 80 20 95/69 93
02/08/24 08:00 02/08/24 13:00 02/08/24 08:00 02/08/24 12:13 02/08/24 09:00
Vital Signs
Temp Pulse Resp BP Pulse Ox
36.5 C 80 20 95/69 93
02/08/24 08:00 02/08/24 13:00 02/08/24 08:00 02/08/24 12:13 02/08/24 09:00
Intake & Output
02/06/24 02/07/24 02/08/24 02/09/24
07:59 07:59 07:59 07:59
Intake Total 559.9 / 590.9 754.2 / 1144.2 1727.3 / 1727.3
Output Total 450 / 450 845 / 995 875 / 875
Balance 109.9 / 140.9 -90.8 / 149.2 852.3 / 852.3
Physical Exam
Physical Exam
See above
[2024-02-08 14:53] LABS: Glucose - Point of Care 98 mg/dl (70-99)
--- NOTE | 2024-02-08 16:45 | PTCARENOTE ---
2 view x-ray completed. Pt remains off Nitro gtt since 1450. Remains chest pain free. BP currently 114/81 MAP 93. Pulse oximetry 95% on room air.
[2024-02-08] MEDS: KCL 20 MEQ PO (17:24)
[2024-02-08] MEDS: LASIX 80 MG IV (17:24)
[2024-02-08 18:18] LABS: Glucose - Point of Care 102 mg/dl (70-99)
[2024-02-08 22:08] LABS: Glucose - Point of Care 118 mg/dl (70-99)
--- NOTE | 2024-02-08 23:00 | PTCARENOTE ---
Pt received from [facility] at change of shift. AAOx3 but forgetful at times. VSS, Afib w/ BBB on tele with HR 70s-80s. Denies CP, reports SOB only when ambulating to bathroom. R groin cath site dressing c/d/i, ecchymotic around site. Ambulates to
bathroom with x1 assist and rolling walker. Non-compliant with ringing for assistance to get OOB, bed alarm activated for pt safety. Daughter at bedside. Call emerson within reach.
[2024-02-09] VITALS (9 sets, daily range): BP systolic 111–128; BP diastolic 64–100
[2024-02-09 05:39] LABS: Blood Urea Nitrogen 71 mg/dl (9-20); Calcium 8.4 mg/dl (8.4-10.2); Carbon Dioxide 25 mmol/L (22-30); Chloride 104 mmol/L (98-107); Estimated Creatinine Clearance 39 ml/min; Glucose 102 mg/dl (70-99); Potassium 3.6 mmol/L (3.5-5.1); Sodium 143 mmol/L (135-145); eGFR 40.75
--- NOTE | 2024-02-09 06:41 | W.PN.HOSP.TC ---
Today's Communication/Plan
-
Discharge planning
Consider isosorbide dinitrate
c/w Eliquis, aspirin, Plavix
MAHENDRA , was started on high dose Lasix
Incentive spirometry
Assessment / Plan
Assessment / Plan
Physical Exam
General: Well Developed, Well Nourished and No Apparent Distress
HEENT: Normocephalic, Moist mucous membranes and Atraumatic
Respiratory: Clear but limited
Cardiac: S1/S2 and Regular Rhythm; No Murmur or Rub
GI: Soft, Non Tender, Non Distended and Normal Bowel Sounds; No Organomegaly
Rectal: Deferred by Provider
Musculoskeletal: No Clubbing, No Cyanosis and No Edema
Skin: No Rash
Neuro: AO x 3 and Nonfocal/grossly intact
Psych: Calm
# Acute kidney injury due to massive [place] and decreased LV function.
On Lasix 80 mg BID
Bladder scan no retention
Renal US no hydronephrosis
Urinalysis not abnormal
Low urine sodium
continue to avoid nephrotoxic and low BP episodes.
# Medical noncompliance.
Challenging issue. No guarantee the patient will be compliant with his medications. Will eventually discharge to care home or with home care services.
# NSTEMI
known CAD
No chest pain in last 48 hours
s/p IV heparin gtt, nitro gtt, aspirin, Plavix, BB. Now on BID Eliquis
Echocardiogram showed LVEF 25- 30%. Global hypokinesis with apical echogenicities. Reduced RV function. Mild MR, mild TR.
[facility] 02/04 showed severe LAD disease. Status post complex LAD stenting.
Appreciate cardiology help
# NSVT
off amiodarone drip, on BB
# TME due to possible UTI & AZ, urine culture is no growth. Empiric 5 days course of Abx due to positive urinalysis.
# Limited lung sounds, chest x ray no acute findings
likely atelectasis, will order IS
# Ischemic hepatitis secondary to AZ and depressed cardiac output
LFT is improving
No abd pain
No nausea
# Persistent atrial fibrillation with rapid ventricular response
Better controlled with beta-blockers
Post Amiodarone gtt. Was not started on oral amiodarone
# Essential (primary) hypertension
Avoid hypotension
# Leukocytosis likely stress reaction
Coming down
-WBC around 30, starting to come down. Pt seems to have chronic leukocytosis. Will need OP evaluation.
-Patient is afebrile
-Continue to monitor
# Elevated D-dimer due to AZ
-Ultrasound of lower extremities negative
# DVT prophylaxis
Eliquis
# CODE STATUS
-Full code. He wanted limited code and only for one cycle of CRP if needed, no prolonged life support if needed.
# Hyperglycemia secondary to dextrose infusion that is mixed with IV medications. s/p low-dose insulin sign scale.
Total time spent to see the patient, examine the patient on the floor, review data and lab results, discuss treatment plan with patient, nursing staff around 55 minutes
Anticipated Discharge: 24 - 48 hours
Subjective/Interval History
-
Date of Service: February 09, 2024
No chest pain
No sob
Objective Data
-
Labs:
Laboratory Results
02/09/24
04:54
Sodium 143
Potassium 3.6
Chloride 104
Carbon Dioxide 25
BUN 71 H
Creatinine 1.7 H
Glucose 102 H
Calcium 8.4
Vital Signs:
Vital Signs
Temp Pulse Resp BP Pulse Ox
97.7 F 80 20 117/64 97
02/09/24 02:45 02/09/24 03:00 02/09/24 02:45 02/09/24 02:43 02/09/24 02:45
I&O
02/07/24 02/08/24 02/09/24
06:59 06:59 06:59
Intake Total 785.2 / 785.2 1727.3 / 1727.3
Output Total 845 / 845 875 / 875 600 / 600
Balance -59.8 / -59.8 852.3 / 852.3 -560 / -560
[2024-02-09] MEDS: ELIQUIS 5 MG PO ×2 (08:02→20:09)
[2024-02-09] MEDS: PLAVIX 75 MG PO (08:02)
[2024-02-09] MEDS: TOPROL XL 25 MG PO ×2 (08:02→20:09)
[2024-02-09] MEDS: LOW STRENGTH ASPIRIN 81 MG PO (08:02)
[2024-02-09] MEDS: PROTONIX 40 MG PO (08:02)
[2024-02-09] MEDS: KCL 20 MEQ PO (08:03)
[2024-02-09] MEDS: LASIX 80 MG IV ×2 (08:03→16:06)
[2024-02-09 08:35] LABS: Glucose - Point of Care 108 mg/dl (70-99)
--- NOTE | 2024-02-09 11:36 | W.PN.NEPH.PH ---
Today's Communication / Plan
-
cont lasix and follow labs
Assessment/Plan
-
IMP:
MAHENDRA
NSTEMI
known CAD
NSVT
TME due to possible UTI & [place]
Ischemic hepatitis secondary to [place] and depressed cardiac output
Persistent atrial fibrillation with rapid ventricular response
Essential (primary) hypertension
Leukocytosis
non compliance
Plan:
A/w NSTEMI s/p complex LAD stent 02/04
MAHENDRA-highly suspect cardiorenal(afib, low BPs, low flow state) and contrast exposure
bland UA and U na is low <5, cr ni cahnge at 1.7
neg U eosinophils, no hydro on US, mild cortical atrophy
avoid nephrotoxins
given elevated LVEDP 27 on [facility], BNP high , ok for lasix per cards
BP are stable now on low dose BB and off nitro gtt
abx per primary
LFTs are elevated-f/u in am
d/w pt , cont FR
-
-
Date of Service: February 09, 2024
CC / HPI / ROS
-
Chief Complaint:
MAHENDRA
History of Present Illness:
cr no change at 1.7, non oliguric
wt is down, on RA
off nitro gtt
Review of Systems:
no active CP,
sob on exertion still
no n/v
Labs
-
Labs:
WBC 19.1 10^3/uL (4.8-10.8) H 02/08/24 04:16
RBC 4.11 10^6/uL (4.70-6.10) L 02/08/24 04:16
Hgb 13.7 g/dL (13.0-18.0) 02/08/24 04:16
Hct 40.3 % (39.0-52.0) 02/08/24 04:16
Plt Count 126 10^3/uL (130-400) L 02/08/24 04:16
Sodium 143 mmol/L (135-145) 02/09/24 04:54
Potassium 3.6 mmol/L (3.5-5.1) 02/09/24 04:54
Chloride 104 mmol/L (98-107) 02/09/24 04:54
Carbon Dioxide 25 mmol/L (22-30) 02/09/24 04:54
BUN 71 mg/dl (9-20) H 02/09/24 04:54
Creatinine 1.7 mg/dL (0.7-1.3) H 02/09/24 04:54
eGFR 40.75 02/09/24 04:54
Glucose 102 mg/dl (70-99) H 02/09/24 04:54
Calcium 8.4 mg/dl (8.4-10.2) 02/09/24 04:54
Tra-Q-Rzpysrfvwzk Pept 61256 pg/ml 02/08/24 04:16
Albumin 3.1 g/dl (3.5-5.0) L 02/08/24 04:16
Physical Exam
-
Vital Signs:
Vital Signs
Temp Pulse Resp BP Pulse Ox
97.8 F 85 16 120/90 95
02/09/24 06:55 02/09/24 11:00 02/09/24 06:55 02/09/24 08:02 02/09/24 08:44
Cardiovascular:: Regular rate and rhythm
Respiratory:: Bilateral: CTA
Lung Excursion:: Normal
Abdomen:: Nontender and Soft
Extremity Edema:: None: Bilateral:
Mcwilliams Catheter: No
[2024-02-09] MEDS: STERILE WATER FOR INJECTION 10 ML IV (11:43)
[2024-02-09] MEDS: ROCEPHIN 1000 MG IV (11:43)
--- NOTE | 2024-02-09 11:46 | W.PN.CARDCBS ---
Addendum entered and electronically signed by Jude Guerrero MD 02/09/24 12:48:
78-year-old man admitted with anterior MS, with borderline cardiogenic shock, underlying permanent A-fib, history of drug-eluting stents to the RCA for inferior MS 2015 and bare-metal stent to the LAD in 2010. EF following MS 25-30%, global
hypokinesis apical akinesis, RV hypokinesis. Peak troponin approximately 350.
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
Current medications: Metoprolol ER 25 mg twice daily, aspirin 81 mg a day, clopidogrel 75 mg daily, pantoprazole, insulin, ceftriaxone, apixaban 5 twice daily, furosemide 80 mg twice daily and potassium
114/90, pulse 80s, resp rate 20 weight is 89.6 kg, down 2 kg, sitting looking at menu, daughter at bedside, says he feels little better after diuresis, head neck exam unremarkable, breath sounds in bases somewhat diminished, irregular rate and
rhythm without obvious murmurs, abdomen obese, 1+ edema
BUN and creatinine 71 and 1.7, potassium 3.6, creatinine is stable. proBNP yesterday was 17,700
Chest x-ray yesterday marked cardiomegaly, probable venous congestion in the lungs
Impression: See below
Plan:
Overall, he seems relatively stable and volume status is improved. Blood pressure and heart rate are adequate.
With increase in furosemide to 80 mg twice daily, weight is down about 2 kg.
Intake and output is probably inaccurate.
Will supplement potassium.
Consider SGLT2 antagonists
Begin discharge planning, suspect patient may need rehab stay. He may be ready for discharge after the weekend.
Original Note:
Today's Communication / Plan
-
Replete potassium
Continue IV diuresis
Continue aspirin, Plavix, Eliquis
Continue Toprol
Needs PT/OT
Impression / Plan
-
PCP: Leelee Avilez
Primary product controller: Jude Guerrero MD
Impression:
Presented 02/04/2024
Acute MS
Cardiogenic shock
A-fib with rapid ventricular response/underlying permanent atrial fibrillation
Nonsustained VT
New heart failure with reduced ejection fraction ejection fraction 25 to 30%. Also reduced right ventricular systolic function.
h/o CAD s/p inf MS w/ JAZMÍN x 2 RCA 2015, LAD BMS stent 2010
Elevated LFTs
Renal insufficiency
Elevated white blood count
Right bundle branch block
Chest pain
Previous cardiovascular studies:
Cardiac cath 08/31/2015: Widely patent proximal LAD stent without significant restenosis, mild luminal irregularities mid LAD. Circumflex mild luminal irregularities. RCA: Mid 60 to 70% stenosis, 95 distal stenosis proximal to takeoff of right PDA.
Right PDA 30%, distal right posterior lateral 50%. Acute marginal arising from mid RCA 80% stenosis. Status post JAZMÍN distal RCA, mid RCA
Cardiac cath 08/31/2010: 90% proximal LAD, followed by 80% LAD. Small OM1 branch with 75% proximal stenosis. Status post PTCA bare-metal stent to proximal LAD
Cardiac catheterization 02/05/2024 complex stenting of LAD with overlapping 3 x 30 mm and 2.25 x 38 mm [place] stents. No reflow that required multiple rounds of adenosine, nicardipine and epinephrine. No distal dissection. LVEDP 27. RCA 30%
in-stent restenosis. PDA 60% stenosis with mid PDA 60% stenosis and distal PDA 80% stenosis. 70% stenosis of the posterolateral branch.
Stress echo 04/03/2020: Normal, low exercise tolerance, 4.5 METS EF 55 to 60%
Echo 09/01/2015: EF 50%, mild concentric LVH, mild aortic sclerosis
Echocardiogram 02/05/2024 with asymmetric septal hypertrophy. Ejection fraction 25 to 30%. Global hypokinesis with apical akinesis. Reduced RV systolic function. Mild MR. Mild TR. PA pressure 25 mmHg.
Plan:
Presented 02/04/2024 with chest pain and left arm pain associated with shortness of breath. Ruled in for NSTEMI, peak troponin 345.
-s/p complex stenting of LAD with overlapping 3 x 30 mm and 2.25 x 38 mm [place] stents on 02/05/24
-Continue triple therapy with aspirin, Plavix and Eliquis for 1 week then Plavix and Eliquis.
-Echocardiogram 02/05/24 showed LVEF 25- 30%. Global hypokinesis with apical echogenicities. Reduced RV function. Mild MR, mild TR.
-Patient chest pain-free. If recurrent chest pain consider long-acting nitrate.
Ischemic cardiomyopathy, heart failure with reduced ejection fraction
-Still complaining of some shortness of breath with activity and laying down.
-proBNP is 17,700, chest x-ray from 02/08/2024 rather unremarkable without pleural effusion or vascular congestion
-Continue on IV Lasix 80 mg twice daily. Continue to monitor and trend creatinine
-Weight is down at least 8 pounds since admission if not more.
-Replete potassium, K 3.6, patient has difficulty swallowing pills will give potassium crystals or liquid
-Continue metoprolol. MAHENDRA this admission has prevented initiation of URSULA/ARB/Aldactone. Would consider addition of URSULA/ARB or Arni as outpatient if creatinine improved
-Consider follow-up echo 02/11 if still here
-No further ventricular ectopy noted on telemetry. Continue beta-troy
-Keep K greater than 4, mag greater than 2
Permanent atrial fibrillation with controlled ventricular response.
-Continue metoprolol.
-Continue Eliquis 5 mg twice daily. Hgb stable 13.7
MAHENDRA - Appreciate renal input. peak Creatinine 2.1, has dropped to 1.7.
-highly suspect cardiorenal(afib, low BPs, low flow state) and contrast exposure
Patient will need placement at rehab upon discharge. Patient's daughter lives out of state and patient lives independently at home.
Plan discussed with patient, nursing, patient's daughter who is at bedside
HPI 02/05/2024:
78-year-old male with past medical history inferior MS with stenting to the RCA 08/2015,, previous LAD stenting , 2010 in setting of non-ST elevation MS, Permanent atrial fibrillation, ischemic cardiomyopathy (most recent stress echo 03/2020 EF 55 to
60%, normal stress echo) presented to the ED 02/04/2024 with left-sided chest and arm pain with associated shortness of breath starting around 10 AM. He was noted to be in rapid A-fib and started on heparin and Cardizem drips.Patient had taken 7
baby aspirin prior to admission. He has been off all medications for some time and was last seen by cardiology 04/2020. Initial troponin 4.7, EKG atrial fibrillation, right bundle branch block, Anterior lateral Q waves. BNP 1790. Started on
heparin drip as above and nitro drip. Blood pressure dropped on nitro drip so stopped in ED but had subsequent 6/10 chest pain and given morphine with no change in pain. Received 3 sublingual nitros with no change in pain. He was restarted on
nitro drip. Also having vomiting.
Subsequently developed 2 episodes of nonsustained VT and was switched from Cardizem drip to amiodarone. Troponin trending up to 49, now 133. Patient currently having 5 out of 10 epigastric pressure and receiving IV morphine. Blood pressure
130s/80s.heart rate 80s to 90s in A-fib. Plan for left heart cath today.
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
Subjective
Date of Service: February 09, 2024
Patient seen and examined. Patient sitting in chair and denies chest pain. Does note some shortness of breath with activity and some difficulty laying flat.
Objective
Labs:
02/08/24 04:16
02/09/24 04:54
Labs
Hgb 13.7 g/dL (13.0-18.0) 02/08/24 04:16
Hct 40.3 % (39.0-52.0) 02/08/24 04:16
Plt Count 126 10^3/uL (130-400) L 02/08/24 04:16
APTT 29.1 Sec (23.4-35.0) 02/07/24 19:33
Sodium 143 mmol/L (135-145) 02/09/24 04:54
Potassium 3.6 mmol/L (3.5-5.1) 02/09/24 04:54
BUN 71 mg/dl (9-20) H 02/09/24 04:54
Creatinine 1.7 mg/dL (0.7-1.3) H 02/09/24 04:54
Glucose 102 mg/dl (70-99) H 02/09/24 04:54
Troponins
02/07/24
22:38
Troponin I 29.400 H*
Vital Signs and I&O:
Vital Signs
Temp Pulse Resp BP Pulse Ox
97.8 F 85 16 120/90 95
02/09/24 06:55 02/09/24 11:00 02/09/24 06:55 02/09/24 08:02 02/09/24 08:44
Vital Signs
Temp Pulse Resp BP Pulse Ox
97.8 F 85 16 120/90 95
02/09/24 06:55 02/09/24 11:00 02/09/24 06:55 02/09/24 08:02 02/09/24 08:44
Intake & Output
02/07/24 02/08/24 02/09/24 02/10/24
06:59 06:59 06:59 06:59
Intake Total 785.2 / 785.2 1727.3 / 1727.3 240 / 240
Output Total 845 / 845 875 / 875 600 / 600 200 / 200
Balance -59.8 / -59.8 852.3 / 852.3 -560 / -560 40 / 40
Physical Exam
Physical Exam
GEN: No distress, awake, Ox3, sitting in chair
HEENT: supple, anicteric, mmm
LUNGS: Decreased breath sounds at bases, no wheezes/rales
CV: Reg, S1/S2, no murmur, rub or gallop
ABD: soft, BS+, NT/ND
EXT: +1 bilateral lower extremity edema
NEURO: Gross non-focal
SKIN: No rash
[2024-02-09 11:55] LABS: Glucose - Point of Care 130 mg/dl (70-99)
[2024-02-09] MEDS: KLOR-CON 40 MEQ PO (13:50)
--- NOTE | 2024-02-09 14:50 | PTCARENOTE ---
RN reviewed patients medications with pt and pt's daughter this morning. Morning medication administration took 40 minutes...patient has extreme anxiety around swallowing pills due to a choking episode as a child. RN offered patient applesauce and
guidance for all pills. He is able to swallow, but anxiety limits taking medications in a reasonable amount of time. RN said in the future, staff can crush some of his medications and place in applesauce if that will help in the future. Patient ate
breakfast and lunch without difficulty. He is voiding in restroom. Continuing to IV diurese. See MAR/flowsheets for further care details.
[2024-02-09 16:25] LABS: Glucose - Point of Care 128 mg/dl (70-99)
--- NOTE | 2024-02-09 16:52 | CM ---
spoke with pt and daughter, Fatmata ([phone]) in room. pt is willing to go to rehab and [facility]. referral faxed, await bed availability. daughter lives in [place] but stated if necessary she will move him in with her.
[2024-02-09 22:55] LABS: Glucose - Point of Care 112 mg/dl (70-99)
[2024-02-10] VITALS (8 sets, daily range): BP systolic 102–136; BP diastolic 56–119; BMI 29.7
--- NOTE | 2024-02-10 02:13 | PTCARENOTE ---
Assumed care of the pt @1900. Pt confused at times easily reoriented. Bed and chair alarm in use. A fib 80's on the monitor. VSS Call emerson within reach.
[2024-02-10 04:27] LABS: Blood Urea Nitrogen 65 mg/dl (9-20); Carbon Dioxide 28 mmol/L (22-30); Chloride 102 mmol/L (98-107); Estimated Creatinine Clearance 33 ml/min; Glucose 107 mg/dl (70-99); Potassium 3.6 mmol/L (3.5-5.1); Sodium 143 mmol/L (135-145); eGFR 38.05
--- NOTE | 2024-02-10 06:40 | W.PN.HOSP.TC ---
Today's Communication/Plan
-
dc planning, will need SNF
can do oral diuretic
DC Acu Checks
Assessment / Plan
Assessment / Plan
Physical Exam
General: No Apparent Distress
HEENT: Normocephalic, Moist mucous membranes and Atraumatic
Respiratory: Clear but limited
Cardiac: S1/S2 and Regular Rhythm; No Murmur or Rub
GI: Soft, Non Tender, Non Distended and Normal Bowel Sounds; No Organomegaly
Rectal: no rectal bleeding
Musculoskeletal: No Clubbing, No Cyanosis and No Edema
Skin: No Rash
Neuro: AO x to self and surroundings, he followed simple commands. no tremor.
Psych: Calm. Flat affect
# Acute kidney injury due to massive [place] and decreased LV function.
On Lasix 80 mg BID, would decrease the dose
Bladder scan no retention
Renal US no hydronephrosis
Urinalysis not abnormal
Low urine sodium
continue to avoid nephrotoxic and low BP episodes.
# Medical noncompliance.
Challenging issue. No guarantee the patient will be compliant with his medications. Will eventually discharge to care home or with home care services.
# NSTEMI
known CAD
No chest pain in last 48 hours
s/p IV heparin gtt, nitro gtt, aspirin, Plavix, BB. Now on BID Eliquis
Echocardiogram showed LVEF 25- 30%. Global hypokinesis with apical echogenicities. Reduced RV function. Mild MR, mild TR.
[facility] 02/04 showed severe LAD disease. Status post complex LAD stenting.
Appreciate cardiology help
# NSVT
off amiodarone drip, on BB
# TME due to possible UTI & [place], urine culture is no growth. Empiric 5 days course of Abx due to positive urinalysis, today 02/09 is last day.
# Limited lung sounds, chest x ray no acute findings
likely atelectasis, IS
# Ischemic hepatitis secondary to [place] and depressed cardiac output
LFT is improving
No abd pain
No nausea
# Persistent atrial fibrillation with rapid ventricular response
Better controlled with beta-blockers
Post Amiodarone gtt. Was not started on oral amiodarone
# Essential (primary) hypertension
Avoid hypotension
# Leukocytosis likely stress reaction
Coming down
-WBC around 30, starting to come down. Pt seems to have chronic leukocytosis. Will need OP evaluation.
-Patient is afebrile
# Elevated D-dimer due to [place]
-Ultrasound of lower extremities negative
# DVT prophylaxis
Eliquis
# CODE STATUS
-Full code. He wanted limited code and only for one cycle of CRP if needed, no prolonged life support if needed.
# Hyperglycemia secondary to dextrose infusion that is mixed with IV medications. s/p low-dose insulin sign scale. Will dc Acu checks
Total time spent to see the patient, examine the patient on the floor, review data and lab results, discuss treatment plan with patient, nursing staff around 55 minutes
Anticipated Discharge: 24 - 48 hours
Subjective/Interval History
-
Date of Service: February 10, 2024
He denies chest pain
Objective Data
-
Labs:
Laboratory Results
02/10/24
03:43
Sodium 143
Potassium 3.6
Chloride 102
Carbon Dioxide 28
BUN 65 H
Creatinine 1.8 H
Glucose 107 H
Calcium 8.0 L
Vital Signs:
Vital Signs
Temp Pulse Resp BP Pulse Ox
98.3 F 79 20 121/90 97
02/10/24 03:25 02/10/24 03:25 02/10/24 03:25 02/10/24 03:25 02/10/24 03:25
I&O
02/08/24 02/09/24 02/10/24
06:59 06:59 06:59
Intake Total 1727.3 / 1727.3 40 / 40 600 / 600
Output Total 875 / 875 600 / 600 1250 / 1250
Balance 852.3 / 852.3 -560 / -560 -650 / -650
[2024-02-10 08:37] LABS: Glucose - Point of Care 96 mg/dl (70-99)
[2024-02-10] MEDS: LASIX 80 MG IV ×2 (08:37→16:12)
[2024-02-10] MEDS: ELIQUIS 5 MG PO ×2 (08:44→21:11)
[2024-02-10] MEDS: TOPROL XL 25 MG PO ×2 (08:44→21:12)
[2024-02-10] MEDS: PLAVIX 75 MG PO (08:44)
[2024-02-10] MEDS: PROTONIX 40 MG PO (08:44)
[2024-02-10] MEDS: KCL 20 MEQ PO (08:44)
[2024-02-10] MEDS: LOW STRENGTH ASPIRIN 81 MG PO (08:44)
--- NOTE | 2024-02-10 09:33 | W.PN.NEPH.PH ---
Today's Communication / Plan
-
Creatinine at 1.8
Cardiology continues with diuresis
No acute dialysis requirement
Assessment/Plan
-
IMP:
MAHENDRA
NSTEMI
known CAD
NSVT
TME due to possible UTI & CT
Ischemic hepatitis secondary to CT and depressed cardiac output
Persistent atrial fibrillation with rapid ventricular response
Essential (primary) hypertension
Leukocytosis
non compliance
Plan:
A/w NSTEMI s/p complex LAD stent 02/04
MAHENDRA-highly suspect cardiorenal(afib, low BPs, low flow state) and contrast exposure
bland UA and U na is low <5, creatinine up to 1.8, but remains grossly non oliguric
neg U eosinophils, no hydro on US, mild cortical atrophy
avoid nephrotoxins
given elevated LVEDP 27 on [facility], BNP high , lasix per cards
BP are stable now on low dose BB and off nitro gtt
abx per primary
LFTs are elevated-f/u in am
d/w pt , cont FR
-
-
Date of Service: February 10, 2024
CC / HPI / ROS
-
Chief Complaint:
MAHENDRA
History of Present Illness:
cr up to 1.8 non oliguric
wt is down, on RA
off nitro gtt
Review of Systems:
no active CP,
sob on exertion still
no n/v
Labs
-
Labs:
WBC 19.1 10^3/uL (4.8-10.8) H 02/08/24 04:16
RBC 4.11 10^6/uL (4.70-6.10) L 02/08/24 04:16
Hgb 13.7 g/dL (13.0-18.0) 02/08/24 04:16
Hct 40.3 % (39.0-52.0) 02/08/24 04:16
Plt Count 126 10^3/uL (130-400) L 02/08/24 04:16
Sodium 143 mmol/L (135-145) 02/10/24 03:43
Potassium 3.6 mmol/L (3.5-5.1) 02/10/24 03:43
Chloride 102 mmol/L (98-107) 02/10/24 03:43
Carbon Dioxide 28 mmol/L (22-30) 02/10/24 03:43
BUN 65 mg/dl (9-20) H 02/10/24 03:43
Creatinine 1.8 mg/dL (0.7-1.3) H 02/10/24 03:43
eGFR 38.05 02/10/24 03:43
Glucose 107 mg/dl (70-99) H 02/10/24 03:43
Calcium 8.0 mg/dl (8.4-10.2) L 02/10/24 03:43
Tjo-X-Jggsuclqdss Pept 58680 pg/ml 02/08/24 04:16
Albumin 3.1 g/dl (3.5-5.0) L 02/08/24 04:16
Physical Exam
-
Vital Signs:
Vital Signs
Temp Pulse Resp BP Pulse Ox
98.1 F 79 16 121/90 95
02/10/24 07:42 02/10/24 03:25 02/10/24 07:42 02/10/24 03:25 02/10/24 07:42
Cardiovascular:: Regular rate and rhythm
Respiratory:: Bilateral: CTA
Lung Excursion:: Normal
Abdomen:: Nontender and Soft
Extremity Edema:: +1: Bilateral:
Mcwilliams Catheter: No
--- NOTE | 2024-02-10 10:13 | PTCARENOTE ---
Rec'd pt at handoff. Tele- Afib. HR 80-90s. Assessment completed as documented. Pt currently has no complaints at this time. Currently in bed; call ki w/in reach.
--- NOTE | 2024-02-10 10:24 | W.PN.CARDCBS ---
Addendum entered and electronically signed by Ria Vazquez DO 02/10/24 16:56:
I saw and examined the patient.
The Title Specialist's note was reviewed and I agree with the note.
Comment: Patient seen and examined. No chest pain or pressure with some mild dyspnea at rest and with minimal exertion. No palpitations.
GEN: No distress, awake, Ox3, sitting in chair
LUNGS: Decreased breath sounds at bases, crackles noted at left base no wheezes/rales
CV: Reg, S1/S2, no murmur, rub or gallop
ABD: soft, BS+, NT/ND
EXT: Trace bilateral lower extremity edema
Plan:
Presented 02/04/2024 with chest pain and left arm pain associated with shortness of breath. Ruled in for NSTEMI, peak troponin 345.
-s/p complex stenting of LAD with overlapping 3 x 30 mm and 2.25 x 38 mm [place] stents on 02/05/24
-Continue triple therapy with aspirin, Plavix and Eliquis for 1 week then Plavix and Eliquis.
-Echocardiogram 02/05/24 showed LVEF 25- 30%. Global hypokinesis with apical echogenicities. Reduced RV function. Mild MR, mild TR.
-Repeat LFTs in the morning and hopefully start statin
Ischemic cardiomyopathy, heart failure with reduced ejection fraction
-proBNP 17,700 on 02/08/24 and chest x-ray from 02/08/2024 rather unremarkable without pleural effusion or vascular congestion
-Still complaining of some shortness of breath with activity and laying down. Appears to be still volume overloaded
-Continue on IV Lasix 80 mg twice daily. Continue to monitor and trend creatinine, seems to be running 1.7->1.8
-Weight is down at least 8 pounds since admission if not more.
-Replete potassium, K 3.6, patient has difficulty swallowing pills will give potassium crystals or liquid
-Continue metoprolol. MAHENDRA this admission has prevented initiation of URSULA/ARB/Aldactone. Would consider addition of URSULA/ARB or Arni as outpatient if creatinine improved
-Consider follow-up echo 02/11 if still here
-No further ventricular ectopy noted on telemetry. Continue beta-troy
-Keep K greater than 4, mag greater than 2
Permanent atrial fibrillation with controlled ventricular response.
-Continue metoprolol.
-Continue Eliquis 5 mg twice daily. Hgb stable 13.7
MAHENDRA - Appreciate renal input. peak Creatinine 2.1, has dropped to 1.8.
-highly suspect cardiorenal(afib, low BPs, low flow state) and contrast exposure
Patient will need placement at rehab upon discharge.
Original Note:
Today's Communication / Plan
-
Continue IV diuresis for another 24 hours
replete K+
Continue aspirin, Plavix, Eliquis, Toprol
Needs PT/OT
Impression / Plan
-
PCP: Leelee Avilez
Primary rug hooker hand: Jude Guerrero MD
Impression:
Presented 02/04/2024 with chest pain and left arm pain associated with shortness of breath.
Acute NC, peak troponin 345
Cardiogenic shock
A-fib with rapid ventricular response/underlying permanent atrial fibrillation
Nonsustained VT
New heart failure with reduced ejection fraction ejection fraction 25 to 30%. Also reduced right ventricular systolic function.
Elevated LFTs
Elevated white blood count
MAHENDRA on CKD
h/o CAD s/p inf NC w/ JAZMÍN x 2 RCA 2015, LAD BMS stent 2010
Renal insufficiency
Right bundle branch block
Previous cardiovascular studies:
Cardiac cath 08/31/2015: Widely patent proximal LAD stent without significant restenosis, mild luminal irregularities mid LAD. Circumflex mild luminal irregularities. RCA: Mid 60 to 70% stenosis, 95 distal stenosis proximal to takeoff of right PDA.
Right PDA 30%, distal right posterior lateral 50%. Acute marginal arising from mid RCA 80% stenosis. Status post JAZMÍN distal RCA, mid RCA
Cardiac cath 08/31/2010: 90% proximal LAD, followed by 80% LAD. Small OM1 branch with 75% proximal stenosis. Status post PTCA bare-metal stent to proximal LAD
Cardiac catheterization 02/05/2024 complex stenting of LAD with overlapping 3 x 30 mm and 2.25 x 38 mm [place] stents. No reflow that required multiple rounds of adenosine, nicardipine and epinephrine. No distal dissection. LVEDP 27. RCA 30%
in-stent restenosis. PDA 60% stenosis with mid PDA 60% stenosis and distal PDA 80% stenosis. 70% stenosis of the posterolateral branch.
Stress echo 04/03/2020: Normal, low exercise tolerance, 4.5 METS EF 55 to 60%
Echo 09/01/2015: EF 50%, mild concentric LVH, mild aortic sclerosis
Echocardiogram 02/05/2024 with asymmetric septal hypertrophy. Ejection fraction 25 to 30%. Global hypokinesis with apical akinesis. Reduced RV systolic function. Mild MR. Mild TR. PA pressure 25 mmHg.
Plan:
Presented 02/04/2024 with chest pain and left arm pain associated with shortness of breath. Ruled in for NSTEMI, peak troponin 345.
-s/p complex stenting of LAD with overlapping 3 x 30 mm and 2.25 x 38 mm [place] stents on 02/05/24
-Continue triple therapy with aspirin, Plavix and Eliquis for 1 week then Plavix and Eliquis.
-Echocardiogram 02/05/24 showed LVEF 25- 30%. Global hypokinesis with apical echogenicities. Reduced RV function. Mild MR, mild TR.
-Patient chest pain-free. If recurrent chest pain consider long-acting nitrate.
Ischemic cardiomyopathy, heart failure with reduced ejection fraction
-proBNP 17,700 on 02/08/24 and chest x-ray from 02/08/2024 rather unremarkable without pleural effusion or vascular congestion
-Still complaining of some shortness of breath with activity and laying down. Appears to be still volume overloaded
-Continue on IV Lasix 80 mg twice daily. Continue to monitor and trend creatinine, seems to be running 1.7->1.8
-Weight is down at least 8 pounds since admission if not more.
-Replete potassium, K 3.6, patient has difficulty swallowing pills will give potassium crystals or liquid
-Continue metoprolol. MAHENDRA this admission has prevented initiation of URSULA/ARB/Aldactone. Would consider addition of URSULA/ARB or Arni as outpatient if creatinine improved
-Consider follow-up echo 02/11 if still here
-No further ventricular ectopy noted on telemetry. Continue beta-troy
-Keep K greater than 4, mag greater than 2
Permanent atrial fibrillation with controlled ventricular response.
-Continue metoprolol.
-Continue Eliquis 5 mg twice daily. Hgb stable 13.7
MAHENDRA - Appreciate renal input. peak Creatinine 2.1, has dropped to 1.8.
-highly suspect cardiorenal(afib, low BPs, low flow state) and contrast exposure
Found to have elevated LFTs earlier in admission, AST/ALT 323/421. Would repeat 02/11/2024
Patient will need placement at rehab upon discharge. Patient's daughter lives out of state and patient lives independently at home.
Plan discussed with patient, nursing, patient's daughter who is at bedside
HPI 02/05/2024:
78-year-old male with past medical history inferior NC with stenting to the RCA 08/2015,, previous LAD stenting , 2010 in setting of non-ST elevation NC, Permanent atrial fibrillation, ischemic cardiomyopathy (most recent stress echo 03/2020 EF 55 to
60%, normal stress echo) presented to the ED 02/04/2024 with left-sided chest and arm pain with associated shortness of breath starting around 10 AM. He was noted to be in rapid A-fib and started on heparin and Cardizem drips.Patient had taken 7
baby aspirin prior to admission. He has been off all medications for some time and was last seen by cardiology 04/2020. Initial troponin 4.7, EKG atrial fibrillation, right bundle branch block, Anterior lateral Q waves. BNP 1790. Started on
heparin drip as above and nitro drip. Blood pressure dropped on nitro drip so stopped in ED but had subsequent 6/10 chest pain and given morphine with no change in pain. Received 3 sublingual nitros with no change in pain. He was restarted on
nitro drip. Also having vomiting.
Subsequently developed 2 episodes of nonsustained VT and was switched from Cardizem drip to amiodarone. Troponin trending up to 49, now 133. Patient currently having 5 out of 10 epigastric pressure and receiving IV morphine. Blood pressure
130s/80s.heart rate 80s to 90s in A-fib. Plan for left heart cath today.
Progress Note - Fitter / Welder
Subjective
Date of Service: February 10, 2024
Patient seen and examined. Patient resting comfortably in bed. Offers no specific complaints
Objective
Labs:
02/08/24 04:16
02/10/24 03:43
Labs
Hgb 13.7 g/dL (13.0-18.0) 02/08/24 04:16
Hct 40.3 % (39.0-52.0) 02/08/24 04:16
Plt Count 126 10^3/uL (130-400) L 02/08/24 04:16
APTT 29.1 Sec (23.4-35.0) 02/07/24 19:33
Sodium 143 mmol/L (135-145) 02/10/24 03:43
Potassium 3.6 mmol/L (3.5-5.1) 02/10/24 03:43
BUN 65 mg/dl (9-20) H 02/10/24 03:43
Creatinine 1.8 mg/dL (0.7-1.3) H 02/10/24 03:43
Glucose 107 mg/dl (70-99) H 02/10/24 03:43
Troponins
02/07/24
22:38
Troponin I 29.400 H*
Vital Signs and I&O:
Vital Signs
Temp Pulse Resp BP Pulse Ox
98.1 F 88 16 120/94 95
02/10/24 07:42 02/10/24 09:00 02/10/24 07:42 02/10/24 07:39 02/10/24 07:42
Vital Signs
Temp Pulse Resp BP Pulse Ox
98.1 F 88 16 120/94 95
02/10/24 07:42 02/10/24 09:00 02/10/24 07:42 02/10/24 07:39 02/10/24 07:42
Intake & Output
02/08/24 02/09/24 02/10/24 02/11/24
06:59 06:59 06:59 06:59
Intake Total 1727.3 / 1727.3 40 / 40 600 / 600 400 / 400
Output Total 875 / 875 600 / 600 1250 / 1250 300 / 300
Balance 852.3 / 852.3 -560 / -560 -650 / -650 100 / 100
Physical Exam
Physical Exam
GEN: No distress, awake, Ox3, sitting in chair
HEENT: supple, anicteric, mmm
LUNGS: Decreased breath sounds at bases, crackles noted at left base no wheezes/rales
CV: Reg, S1/S2, no murmur, rub or gallop
ABD: soft, BS+, NT/ND
EXT: Trace bilateral lower extremity edema
NEURO: Gross non-focal
SKIN: No rash
[2024-02-10] MEDS: KLOR-CON 20 MEQ PO (11:42)
[2024-02-10] MEDS: STERILE WATER FOR INJECTION 10 ML IV (11:42)
[2024-02-10] MEDS: ROCEPHIN 1000 MG IV (11:42)
--- NOTE | 2024-02-10 21:38 | PTCARENOTE ---
received patient at the change of shift. AAox3, sitting in the chair. forgetful. withdrawn but pleasant. patient expressed not having the best day today, 'mentally.' offered to sit with patient and patient refused. 'i just to go into bed.' patient
refused 8pm medications. RN returned with medications and educated patient on importance. patient reluctant at first. medications then given, see mar. updated Bonita Smith HOUSEKEEPING ASSOCIATE. reviewed plan of care with patient and verbalized understanding. bed
alarm in place for safety. comfort measure provided.
[2024-02-11 03:57] VITALS: BP 91/75
[2024-02-11 04:44] LABS: Hematocrit 46.1 % (39.0-52.0); Hemoglobin 15.9 g/dL (13.0-18.0); Mean Corp Hgb Conc. 34.5 g/dL (33.0-37.0); Mean Corpuscular Hgb 33.5 pg (27.0-31.0); Mean Corpuscular Volume 97.1 fL (80.0-94.0); Platelet Count 148 10^3/uL (130-400); Red Blood Cell Count 4.75 10^6/uL (4.70-6.10); Red Cell Dist. Width 14.6 % (11.5-14.5); White Blood Cell Count 16.7 10^3/uL (4.8-10.8)
[2024-02-11 06:19] LABS: ALT (SGPT) 199 U/L (0-50); AST (SGOT) 69 U/L (17-59); Albumin 3.5 g/dl (3.5-5.0); Alkaline Phosphatase 114 U/L (38-126); Blood Urea Nitrogen 60 mg/dl (9-20); Calcium 8.2 mg/dl (8.4-10.2); Carbon Dioxide 33 mmol/L (22-30); Chloride 100 mmol/L (98-107); Estimated Creatinine Clearance 33 ml/min; Glucose 115 mg/dl (70-99); Potassium 3.4 mmol/L (3.5-5.1); Sodium 143 mmol/L (135-145); Total Bilirubin 1.5 mg/dl (0.2-1.3); Total Protein 6.7 g/dl (6.3-8.2); eGFR 38.05
[2024-02-11 07:05] VITALS: BP 119/93
[2024-02-11] MEDS: PLAVIX 75 MG PO (08:26)
[2024-02-11] MEDS: ELIQUIS 5 MG PO ×2 (08:27→20:08)
[2024-02-11] MEDS: LOW STRENGTH ASPIRIN 81 MG PO (08:27)
[2024-02-11] MEDS: LASIX 80 MG IV (08:28)
[2024-02-11] MEDS: PROTONIX 40 MG PO (08:28)
[2024-02-11] MEDS: TOPROL XL 25 MG PO ×2 (08:28→20:08)
[2024-02-11] MEDS: KLOR-CON 20 MEQ PO (08:28)
--- NOTE | 2024-02-11 09:09 | W.PN.HOSP.TC ---
Today's Communication/Plan
-
Change to oral Lasix and reduce the dose. Hold further Lasix for today, low BP, I think we are at his dry weight now
Check weight daily
BMP IN AM
replace K, powder form
DC planning
Assessment / Plan
Assessment / Plan
Physical Exam
General: No Apparent Distress
HEENT: Normocephalic, Moist mucous membranes and Atraumatic
Respiratory: Clear but limited
Cardiac: S1/S2 and Regular Rhythm; No Murmur or Rub
GI: Soft, Non Tender, Non Distended and Normal Bowel Sounds; No Organomegaly
Rectal: no rectal bleeding
Musculoskeletal: No Clubbing, No Cyanosis and No Edema
Skin: No Rash
Neuro: AO x to self and surroundings, he followed simple commands. no tremor.
Psych: Calm. Flat affect
# Acute kidney injury due to massive ID and decreased LV function.
On Lasix 80 mg BID, would decrease the dose
Bladder scan no retention
Renal US no hydronephrosis
Urinalysis not abnormal
Low urine sodium
continue to avoid nephrotoxic and low BP episodes.
# Medical noncompliance.
Challenging issue. No guarantee the patient will be compliant with his medications. Will eventually discharge to residential or with home care services.
# NSTEMI
known CAD
No chest pain in last 48 hours
s/p IV heparin gtt, nitro gtt, aspirin, Plavix, BB. Now on BID Eliquis
Echocardiogram showed LVEF 25- 30%. Global hypokinesis with apical echogenicities. Reduced RV function. Mild MR, mild TR.
[facility] 02/04 showed severe LAD disease. Status post complex LAD stenting.
Appreciate cardiology help
# NSVT
off amiodarone drip, on BB
# Acute on chronic heart failure with reduced EF 25-30%
Significant drop from LVEF 50-55% in 2018. Largely due to non- compliance with medications and instructions.
S/P IV Lasix, he lost weight. I think we are at his dry weight now
Unable to start all GDMT due to hypotension/ kidney injury but eventually will start him. He stopped his medications and following with his hemodialysis technician at one point.
# Flat affect, baseline per family.
d/w pt, he denies depression.
# hypokalemia, replaced. Changed to powder form , easier to swallow for him.
# TME due to possible UTI & ID, urine culture is no growth. Finished empiric 5 days course of Abx due to positive urinalysis.
# Limited lung sounds, chest x ray no acute findings
likely atelectasis, IS
# Ischemic hepatitis secondary to ID and depressed cardiac output
LFT is improving
No abd pain
No nausea
# Persistent atrial fibrillation with rapid ventricular response
Better controlled with beta-blockers
Post Amiodarone gtt. Was not started on oral amiodarone
# Essential (primary) hypertension
Hypotensive today, will hold further Lasix for today
# Leukocytosis likely stress reaction
Stable count.
-WBC was around 30, came down. Pt seems to have chronic leukocytosis in last few years. Will need OP evaluation.
-Patient is afebrile
# Elevated D-dimer due to ID
-Ultrasound of lower extremities negative
# DVT prophylaxis
Eliquis
# CODE STATUS
-Full code. He wanted limited code and only for one cycle of CRP if needed, no prolonged life support if needed.
# Hyperglycemia secondary to dextrose infusion that is mixed with IV medications. s/p low-dose insulin sign scale. DC Acu checks
Total time spent to see the patient, examine the patient on the floor, review data and lab results, discuss treatment plan with patient, nursing staff around 55 minutes
Anticipated Discharge: Today
Subjective/Interval History
-
Date of Service: February 11, 2024
No sob
No chest pain
No fevers
Objective Data
-
Labs:
Laboratory Results
02/11/24
03:55
WBC 16.7 H
Hgb 15.9
Hct 46.1
Plt Count 148
Sodium 143
Potassium 3.4 L
Chloride 100
Carbon Dioxide 33 H
BUN 60 H
Creatinine 1.8 H
Glucose 115 H
Calcium 8.2 L
Total Bilirubin 1.5 H
AST 69 H
ALT 199 H
Alkaline Phosphatase 114
Vital Signs:
Vital Signs
Temp Pulse Resp BP Pulse Ox
97.5 F 88 20 91/75 94
02/11/24 07:03 02/11/24 04:00 02/11/24 07:03 02/11/24 03:57 02/11/24 07:03
I&O
02/10/24 02/11/24 02/12/24
06:59 06:59 06:59
Intake Total 600 / 600 850 / 850
Output Total 1250 / 1250 1800 / 1800
Balance -650 / -650 -950 / -950
--- NOTE | 2024-02-11 09:57 | PTCARENOTE ---
Pt appears more cheerful today and remains forgetful at times. Pt OOB in chair for breakfast. AM hygiene completed. Assessment completed as documented. Tele- afib. Currently in recliner; call ki w/in reach.
--- NOTE | 2024-02-11 10:05 | W.PN.NEPH.PH ---
Today's Communication / Plan
-
Observe on oral Lasix
Follow BMP
Assessment/Plan
-
IMP:
MAHENDRA
NSTEMI
known CAD
NSVT
TME due to possible UTI & MN
Ischemic hepatitis secondary to MN and depressed cardiac output
Persistent atrial fibrillation with rapid ventricular response
Essential (primary) hypertension
Leukocytosis
non compliance
Plan:
A/w NSTEMI s/p complex LAD stent 02/04
MAHENDRA-highly suspect cardiorenal(afib, low BPs, low flow state) and contrast exposure
bland UA and U na is low <5, creatinine unchanged at 1.8, but remains grossly non oliguric,weights down
neg U eosinophils, no hydro on US, mild cortical atrophy
avoid nephrotoxins
given elevated LVEDP 27 on [facility], BNP high , lasix per cards 40mg daily
BP are stable now on low dose BB and off nitro gtt
abx per primary
LFTs are elevated-f/u in am
d/w pt , cont FR
-
-
Date of Service: February 11, 2024
CC / HPI / ROS
-
Chief Complaint:
MAHENDRA
History of Present Illness:
cr up to 1.8 non oliguric
wt is down, on RA
off nitro gtt
Review of Systems:
no active CP,
sob on exertion still
no n/v
Labs
-
Labs:
WBC 16.7 10^3/uL (4.8-10.8) H 02/11/24 03:55
RBC 4.75 10^6/uL (4.70-6.10) 02/11/24 03:55
Hgb 15.9 g/dL (13.0-18.0) 02/11/24 03:55
Hct 46.1 % (39.0-52.0) 02/11/24 03:55
Plt Count 148 10^3/uL (130-400) 02/11/24 03:55
Sodium 143 mmol/L (135-145) 02/11/24 03:55
Potassium 3.4 mmol/L (3.5-5.1) L 02/11/24 03:55
Chloride 100 mmol/L (98-107) 02/11/24 03:55
Carbon Dioxide 33 mmol/L (22-30) H 02/11/24 03:55
BUN 60 mg/dl (9-20) H 02/11/24 03:55
Creatinine 1.8 mg/dL (0.7-1.3) H 02/11/24 03:55
eGFR 38.05 02/11/24 03:55
Glucose 115 mg/dl (70-99) H 02/11/24 03:55
Calcium 8.2 mg/dl (8.4-10.2) L 02/11/24 03:55
Qdk-G-[place] Pept 98893 pg/ml 02/08/24 04:16
Albumin 3.5 g/dl (3.5-5.0) 02/11/24 03:55
Physical Exam
-
Vital Signs:
Vital Signs
Temp Pulse Resp BP Pulse Ox
97.5 F 80 20 119/93 94
02/11/24 07:03 02/11/24 09:00 02/11/24 07:03 02/11/24 07:05 02/11/24 07:03
Cardiovascular:: Regular rate and rhythm
Respiratory:: Bilateral: CTA
Lung Excursion:: Normal
Abdomen:: Nontender and Soft
Extremity Edema:: +1: Bilateral:
Mcwilliams Catheter: No
[2024-02-11 11:56] VITALS: BP 110/84
[2024-02-11 14:51] VITALS: BP 98/59
[2024-02-11] MEDS: LIPITOR 40 MG PO (17:55)
--- NOTE | 2024-02-11 18:39 | W.PN.CARDCBS ---
Today's Communication / Plan
-
Optimize goal-directed medical therapy as able
Transition to oral lasix
Limited 2D echocardiogram Monday
Discharge planning
Impression / Plan
-
PCP: Leelee Avilez
Primary home performance consultant: Jude Guerrero MD
Impression:
Presented 02/04/2024 with chest pain and left arm pain associated with shortness of breath.
Acute AL, peak troponin 345
Cardiogenic shock
A-fib with rapid ventricular response/underlying permanent atrial fibrillation
Nonsustained VT
New heart failure with reduced ejection fraction ejection fraction 25 to 30%. Also reduced right ventricular systolic function.
Elevated LFTs
Elevated white blood count
MAHENDRA on CKD
h/o CAD s/p inf [place] w/ JAZMÍN x 2 RCA 2015, LAD BMS stent 2010
Renal insufficiency
Right bundle branch block
Previous cardiovascular studies:
Cardiac cath 08/31/2015: Widely patent proximal LAD stent without significant restenosis, mild luminal irregularities mid LAD. Circumflex mild luminal irregularities. RCA: Mid 60 to 70% stenosis, 95 distal stenosis proximal to takeoff of right PDA.
Right PDA 30%, distal right posterior lateral 50%. Acute marginal arising from mid RCA 80% stenosis. Status post JAZMÍN distal RCA, mid RCA
Cardiac cath 08/31/2010: 90% proximal LAD, followed by 80% LAD. Small OM1 branch with 75% proximal stenosis. Status post PTCA bare-metal stent to proximal LAD
Cardiac catheterization 02/05/2024 complex stenting of LAD with overlapping 3 x 30 mm and 2.25 x 38 mm [place] stents. No reflow that required multiple rounds of adenosine, nicardipine and epinephrine. No distal dissection. LVEDP 27. RCA 30%
in-stent restenosis. PDA 60% stenosis with mid PDA 60% stenosis and distal PDA 80% stenosis. 70% stenosis of the posterolateral branch.
Stress echo 04/03/2020: Normal, low exercise tolerance, 4.5 METS EF 55 to 60%
Echo 09/01/2015: EF 50%, mild concentric LVH, mild aortic sclerosis
Echocardiogram 02/05/2024 with asymmetric septal hypertrophy. Ejection fraction 25 to 30%. Global hypokinesis with apical akinesis. Reduced RV systolic function. Mild MR. Mild TR. PA pressure 25 mmHg.
Plan:
Non-STEMI 02/04/2024 with peak troponin 345
-s/p complex stenting of LAD with overlapping 3 x 30 mm and 2.25 x 38 mm [place] stents on 02/05/24
-Continue triple therapy with aspirin, Plavix and Eliquis for 1 week then Plavix and Eliquis- Plan to stop aspirin February 12 and continue Plavix/Eliquis
-Echocardiogram 02/05/24 showed LVEF 25- 30%. Global hypokinesis with apical echogenicities. Reduced RV function. Mild MR, mild TR.
-LFTs improving; initiate Atrovastatin. LDL on admission 107 mg/dL
Ischemic cardiomyopathy, heart failure with reduced ejection fraction
-proBNP 17,700 on 02/08/24
-Volume status appears better with at least 17 pound weight loss since admission
-Status post IV Lasix now transition to oral Lasix 40 mg today
-Continue metoprolol.
-Goal-directed medical therapy has been limited by acute renal insufficiency as well as hypotension.
-Liimited follow-up 2D echocardiogram on Monday
-Keep K greater than 4, mag greater than 2
Permanent atrial fibrillation with controlled ventricular response.
-Continue metoprolol.
-Continue Eliquis 5 mg twice daily.
MAHENDRA - Appreciate renal input. peak Creatinine 2.1, has dropped to 1.8.
Patient will need placement at rehab upon discharge.
HPI 02/05/2024:
78-year-old male with past medical history inferior AL with stenting to the RCA 08/2015,, previous LAD stenting , 2010 in setting of non-ST elevation AL, Permanent atrial fibrillation, ischemic cardiomyopathy (most recent stress echo 03/2020 EF 55 to
60%, normal stress echo) presented to the ED 02/04/2024 with left-sided chest and arm pain with associated shortness of breath starting around 10 AM. He was noted to be in rapid A-fib and started on heparin and Cardizem drips.Patient had taken 7
baby aspirin prior to admission. He has been off all medications for some time and was last seen by cardiology 04/2020. Initial troponin 4.7, EKG atrial fibrillation, right bundle branch block, Anterior lateral Q waves. BNP 1790. Started on
heparin drip as above and nitro drip. Blood pressure dropped on nitro drip so stopped in ED but had subsequent 6/10 chest pain and given morphine with no change in pain. Received 3 sublingual nitros with no change in pain. He was restarted on
nitro drip. Also having vomiting.
Subsequently developed 2 episodes of nonsustained VT and was switched from Cardizem drip to amiodarone. Troponin trending up to 49, now 133. Patient currently having 5 out of 10 epigastric pressure and receiving IV morphine. Blood pressure
130s/80s.heart rate 80s to 90s in A-fib. Plan for left heart cath today.
Progress Note - Color Specialist
Subjective
Date of Service: February 11, 2024
Patient seen and examined sitting out of bed to chair. No events overnight
Objective
Labs:
02/11/24 03:55
02/11/24 03:55
Labs
Hgb 15.9 g/dL (13.0-18.0) 02/11/24 03:55
Hct 46.1 % (39.0-52.0) 02/11/24 03:55
Plt Count 148 10^3/uL (130-400) 02/11/24 03:55
APTT 29.1 Sec (23.4-35.0) 02/07/24 19:33
Sodium 143 mmol/L (135-145) 02/11/24 03:55
Potassium 3.4 mmol/L (3.5-5.1) L 02/11/24 03:55
BUN 60 mg/dl (9-20) H 02/11/24 03:55
Creatinine 1.8 mg/dL (0.7-1.3) H 02/11/24 03:55
Glucose 115 mg/dl (70-99) H 02/11/24 03:55
Vital Signs and I&O:
Vital Signs
Temp Pulse Resp BP Pulse Ox
98.3 F 84 16 98/59 98
02/11/24 15:00 02/11/24 15:00 02/11/24 15:00 02/11/24 14:51 02/11/24 15:00
Vital Signs
Temp Pulse Resp BP Pulse Ox
98.3 F 84 16 98/59 98
02/11/24 15:00 02/11/24 15:00 02/11/24 15:00 02/11/24 14:51 02/11/24 15:00
Intake & Output
02/09/24 02/10/24 02/11/24 02/12/24
06:59 06:59 06:59 06:59
Intake Total 40 / 40 600 / 600 850 / 850 300 / 300
Output Total 600 / 600 1250 / 1250 1800 / 1800 1300 / 1300
Balance -560 / -560 -650 / -650 -950 / -950 -1000 / -1000
Physical Exam
Physical Exam
GEN: No distress, awake, Ox3, sitting in chair
HEENT: supple, anicteric, mmm
LUNGS: Decreased breath sounds at bases, crackles noted at left base no wheezes/rales
CV: Reg, S1/S2, no murmur, rub or gallop
ABD: soft, BS+, NT/ND
EXT: Trace bilateral lower extremity edema
[2024-02-11 20:04] VITALS: BP 108/90
[2024-02-11 22:18] VITALS: BP 100/81
[2024-02-12] VITALS (7 sets, daily range): BP systolic 104–134; BP diastolic 73–104; PULSE 76; O2SAT 97; BMI 29.6
--- NOTE | 2024-02-12 00:01 | PTCARENOTE ---
Pt rec'd in bed flat affect. Only ate ice cream off dinner tray. Box lunch provided and pt ate half a sandwich.
Lungs diminished, R/A. afib on telemetry,rate controlled.
[2024-02-12 04:23] LABS: Hematocrit 41.3 % (39.0-52.0); Hemoglobin 14.4 g/dL (13.0-18.0); Mean Corp Hgb Conc. 34.9 g/dL (33.0-37.0); Mean Corpuscular Hgb 33.5 pg (27.0-31.0); Mean Platelet Volume 10.9 fL (7.4-10.4); Platelet Count 156 10^3/uL (130-400); Red Cell Dist. Width 14.7 % (11.5-14.5); White Blood Cell Count 17.1 10^3/uL (4.8-10.8)
[2024-02-12 04:54] LABS: Blood Urea Nitrogen 56 mg/dl (9-20); Calcium 7.9 mg/dl (8.4-10.2); Carbon Dioxide 32 mmol/L (22-30); Chloride 99 mmol/L (98-107); Estimated Creatinine Clearance 35 ml/min; Glucose 113 mg/dl (70-99); Potassium 3.5 mmol/L (3.5-5.1); Sodium 141 mmol/L (135-145); eGFR 40.75
[2024-02-12] MEDS: TOPROL XL 25 MG PO (08:52)
[2024-02-12] MEDS: KLOR-CON 20 MEQ PO ×2 (08:52→12:15)
[2024-02-12] MEDS: PLAVIX 75 MG PO (08:53)
[2024-02-12] MEDS: PROTONIX 40 MG PO (08:53)
[2024-02-12] MEDS: LASIX 40 MG PO (08:53)
[2024-02-12] MEDS: ELIQUIS 5 MG PO (08:53)
[2024-02-12] MEDS: LOW STRENGTH ASPIRIN 81 MG PO (08:53)
--- NOTE | 2024-02-12 10:15 | PTCARENOTE ---
Addendum entered by Asha Roth RN 02/12/24 10:17:
morning medications were crushed in applesauce and dinah. well.
Original Note:
received patient this am in bed, quiet, flat affect. I ordered patient breakfast for him, got him up to a chair with assist of walker dinah. well. patient is having difficulty swallowing therefore doesn't eat much, will notify hospitalist. monitor
shows Afib with a BBC, VSS.
--- NOTE | 2024-02-12 11:20 | CM ---
Chart reviewed. Patient is independent of ADLS, lives alone in a 1 story apartment, 0 [place], ambulates with a SPC. PT evaluation is recommending SNF. Referral sent to [facility] and accepted. Plan is for the patient to go to SNF when medically stable.
CM to follow
--- NOTE | 2024-02-12 11:23 | W.PN.CARDCBS ---
Addendum entered and electronically signed by David Parry DO 02/12/24 14:26:
I saw and examined the patient.
The [employer] Firefighter's note was reviewed and I agree with the note.
Comment:
Plan:
Stable for d/c from cardiac standpoint
Reviewed meds
CMP 1 week on reduced lasix dosing.
Outpt follow up arranged.
Original Note:
Today's Communication / Plan
-
Follow-up limited echo today
Replete K+ (give extra 20 meq today)
D/c on reduced dose of Lasix 40 mg
Optimize goal-directed medical therapy as BP allows - continue Toprol
Will need CMP in 1 week for follow renal function, LFTs and electrolytes
Stable from cardiac standpoint for discharge. Outpatient follow-up has been arranged
Impression / Plan
-
PCP: Leelee Avilez
Primary puppy sitter: Jude Guerrero MD
Impression:
Presented 02/04/2024 with chest pain and left arm pain associated with shortness of breath.
Acute RI, peak troponin 345
Cardiogenic shock
A-fib with rapid ventricular response/underlying permanent atrial fibrillation
Nonsustained VT
New heart failure with reduced ejection fraction ejection fraction 25 to 30%. Also reduced right ventricular systolic function.
Elevated LFTs
Elevated white blood count
MAHENDRA on CKD
h/o CAD s/p inf RI w/ JAZMÍN x 2 RCA 2015, LAD BMS stent 2010
Renal insufficiency
Right bundle branch block
Previous cardiovascular studies:
Cardiac cath 08/31/2015: Widely patent proximal LAD stent without significant restenosis, mild luminal irregularities mid LAD. Circumflex mild luminal irregularities. RCA: Mid 60 to 70% stenosis, 95 distal stenosis proximal to takeoff of right PDA.
Right PDA 30%, distal right posterior lateral 50%. Acute marginal arising from mid RCA 80% stenosis. Status post JAZMÍN distal RCA, mid RCA
Cardiac cath 08/31/2010: 90% proximal LAD, followed by 80% LAD. Small OM1 branch with 75% proximal stenosis. Status post PTCA bare-metal stent to proximal LAD
Cardiac catheterization 02/05/2024 complex stenting of LAD with overlapping 3 x 30 mm and 2.25 x 38 mm [place] stents. No reflow that required multiple rounds of adenosine, nicardipine and epinephrine. No distal dissection. LVEDP 27. RCA 30%
in-stent restenosis. PDA 60% stenosis with mid PDA 60% stenosis and distal PDA 80% stenosis. 70% stenosis of the posterolateral branch.
Stress echo 04/03/2020: Normal, low exercise tolerance, 4.5 METS EF 55 to 60%
Echo 09/01/2015: EF 50%, mild concentric LVH, mild aortic sclerosis
Echocardiogram 02/05/2024 with asymmetric septal hypertrophy. Ejection fraction 25 to 30%. Global hypokinesis with apical akinesis. Reduced RV systolic function. Mild MR. Mild TR. PA pressure 25 mmHg.
Plan:
Non-STEMI 02/04/2024 with peak troponin 345
-s/p complex stenting of LAD with overlapping 3 x 30 mm and 2.25 x 38 mm [place] stents on 02/05/24
-Continue triple therapy with aspirin, Plavix and Eliquis for 1 week then Plavix and Eliquis- Plan to stop aspirin February 12 and continue Plavix/Eliquis
-Echocardiogram 02/05/24 showed LVEF 25- 30%. Global hypokinesis with apical echogenicities. Reduced RV function. Mild MR, mild TR.
-Repeat follow up echo 02/12/2024 pending
-LFTs improving AST/ALT 69/199; initiate Atrovastatin. LDL on admission 107 mg/dL; will need repeat LFTs in 1 weeks as outpatient
Ischemic cardiomyopathy, heart failure with reduced ejection fraction
-proBNP 17,700 on 02/08/24
-Volume status appears better with at least 17 pound weight loss since admission
-Status post IV Lasix now transition to oral Lasix 40 mg 02/12/24
-Stable BUN/creatinine 56/1.7
-Continue metoprolol.
-Goal-directed medical therapy has been limited by acute renal insufficiency as well as hypotension. Unable to add URSULA/ARB/Aldactone or Arni at this time
-Limited follow-up 2D echocardiogram 02/11 pending
-Keep K greater than 4, mag greater than 2; will replete K+
Permanent atrial fibrillation with controlled ventricular response.
-Continue metoprolol.
-Continue Eliquis 5 mg twice daily.
MAHENDRA - Appreciate renal input. peak Creatinine 2.1, has dropped to 1.7. Follow-up CMP in 1 week
Patient will need placement at rehab upon discharge.
HPI 02/05/2024:
78-year-old male with past medical history inferior RI with stenting to the RCA 08/2015,, previous LAD stenting , 2010 in setting of non-ST elevation RI, Permanent atrial fibrillation, ischemic cardiomyopathy (most recent stress echo 03/2020 EF 55 to
60%, normal stress echo) presented to the ED 02/04/2024 with left-sided chest and arm pain with associated shortness of breath starting around 10 AM. He was noted to be in rapid A-fib and started on heparin and Cardizem drips.Patient had taken 7
baby aspirin prior to admission. He has been off all medications for some time and was last seen by cardiology 04/2020. Initial troponin 4.7, EKG atrial fibrillation, right bundle branch block, Anterior lateral Q waves. BNP 1790. Started on
heparin drip as above and nitro drip. Blood pressure dropped on nitro drip so stopped in ED but had subsequent 6/10 chest pain and given morphine with no change in pain. Received 3 sublingual nitros with no change in pain. He was restarted on
nitro drip. Also having vomiting.
Subsequently developed 2 episodes of nonsustained VT and was switched from Cardizem drip to amiodarone. Troponin trending up to 49, now 133. Patient currently having 5 out of 10 epigastric pressure and receiving IV morphine. Blood pressure
130s/80s.heart rate 80s to 90s in A-fib. Plan for left heart cath today.
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
Subjective
Date of Service: February 12, 2024
Patient seen and examined. Sitting up in chair. Denies chest pain or SOB. Feels weak and deconditioned.
Objective
Labs:
02/12/24 03:58
02/12/24 03:58
Labs
Hgb 14.4 g/dL (13.0-18.0) 02/12/24 03:58
Hct 41.3 % (39.0-52.0) 02/12/24 03:58
Plt Count 156 10^3/uL (130-400) 02/12/24 03:58
APTT 29.1 Sec (23.4-35.0) 02/07/24 19:33
Sodium 141 mmol/L (135-145) 02/12/24 03:58
Potassium 3.5 mmol/L (3.5-5.1) 02/12/24 03:58
BUN 56 mg/dl (9-20) H 02/12/24 03:58
Creatinine 1.7 mg/dL (0.7-1.3) H 02/12/24 03:58
Glucose 113 mg/dl (70-99) H 02/12/24 03:58
Vital Signs and I&O:
Vital Signs
Temp Pulse Resp BP Pulse Ox
98.2 F 87 20 110/73 97
02/12/24 11:16 02/12/24 11:10 02/12/24 11:16 02/12/24 11:10 02/12/24 11:16
Vital Signs
Temp Pulse Resp BP Pulse Ox
98.2 F 87 20 110/73 97
02/12/24 11:16 02/12/24 11:10 02/12/24 11:16 02/12/24 11:10 02/12/24 11:16
Intake & Output
02/10/24 02/11/24 02/12/24 02/13/24
06:59 06:59 06:59 06:59
Intake Total 600 / 600 850 / 850 420 / 420
Output Total 1250 / 1250 1800 / 1800 1750 / 1750
Balance -650 / -650 -950 / -950 -1330 / -1330
Physical Exam
Physical Exam
GEN: No distress, awake, Ox3, sitting in chair
HEENT: supple, anicteric, mmm
LUNGS: Mildly decreased breath sounds at bases otherwise clear, no wheezes or crackles
CV: Reg, S1/S2, no murmur, rub or gallop
ABD: soft, BS+, NT/ND
EXT: No clubbing, cyanosis or lower extremity edema
NEURO: Gross non-focal
SKIN: No rash
--- NOTE | 2024-02-12 12:04 | W.PN.NEPH.PH ---
Today's Communication / Plan
-
cont lasix
follow labs
upon d/c f/u nephro
CMP in 1week
Assessment/Plan
-
IMP:
MAHENDRA
NSTEMI
known CAD
NSVT
TME due to possible UTI & MT
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
Persistent atrial fibrillation with rapid ventricular response
Essential (primary) hypertension
Leukocytosis
non compliance
Plan:
A/w NSTEMI s/p complex LAD stent 02/04
MAHENDRA-highly suspect cardiorenal(afib, low BPs, low flow state) and contrast exposure
bland UA and U na is low <5, creatinine unchanged at 1.7, but remains grossly non oliguric,weights down
neg U eosinophils, no hydro on US, mild cortical atrophy
avoid nephrotoxins
given elevated LVEDP 27 on [facility], BNP high , cont lasix PO 40mg daily
for repeat limited echo today
BP are soft, n low dose BB
abx per primary
LFTs are improving
dysphagia?-magt per primary
d/w pt and nursing
-
-
Date of Service: February 12, 2024
CC / HPI / ROS
-
Chief Complaint:
MAHENDRA
History of Present Illness:
cr no sig change at 1.7 non oliguric
wt is down, on RA
BP stable
Review of Systems:
no active CP,
no sob
but c/o difficulty to cough and swallow
no n/v
Labs
-
Labs:
WBC 17.1 10^3/uL (4.8-10.8) H 02/12/24 03:58
RBC 4.30 10^6/uL (4.70-6.10) L 02/12/24 03:58
Hgb 14.4 g/dL (13.0-18.0) 02/12/24 03:58
Hct 41.3 % (39.0-52.0) 02/12/24 03:58
Plt Count 156 10^3/uL (130-400) 02/12/24 03:58
Sodium 141 mmol/L (135-145) 02/12/24 03:58
Potassium 3.5 mmol/L (3.5-5.1) 02/12/24 03:58
Chloride 99 mmol/L (98-107) 02/12/24 03:58
Carbon Dioxide 32 mmol/L (22-30) H 02/12/24 03:58
BUN 56 mg/dl (9-20) H 02/12/24 03:58
Creatinine 1.7 mg/dL (0.7-1.3) H 02/12/24 03:58
eGFR 40.75 02/12/24 03:58
Glucose 113 mg/dl (70-99) H 02/12/24 03:58
Calcium 7.9 mg/dl (8.4-10.2) L 02/12/24 03:58
Mfb-N-Kdkzdeemdpf Pept 80138 pg/ml 02/08/24 04:16
Albumin 3.5 g/dl (3.5-5.0) 02/11/24 03:55
Physical Exam
-
Vital Signs:
Vital Signs
Temp Pulse Resp BP Pulse Ox
98.2 F 87 20 110/73 97
02/12/24 11:16 02/12/24 11:10 02/12/24 11:16 02/12/24 11:10 02/12/24 11:16
Cardiovascular:: Regular rate and rhythm
Respiratory:: Bilateral: CTA
Lung Excursion:: Normal
Abdomen:: Nontender and Soft
Extremity Edema:: None: Bilateral: (trace)
Mcwilliams Catheter: No
--- NOTE | 2024-02-12 13:18 | PTCARENOTE ---
Addendum entered by Asha Roth RN 02/12/24 13:28:
patient sat up in chair most of the morning, ready to get back to bed, noticed that patient only ate part of the applesauce that contains his medication, he said I can't take any more. when asked why, patient stated, my stomach is hurting and I
feels nauseated after taking pills, food etc.
Original Note:
patient stated that he is having difficulty swallowing since this admission, not able to eat much and all his medications are being crushed in applesauce. Dr. Ray aware.
--- NOTE | 2024-02-12 14:46 | W.DS.TRANS ---
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
-
Discharge Instructions:
Sleep Apnea Risk Intermediate
Discharge Diagnosis/Procedures Acute [place]
Diet 2 Gram Sodium
Blood Work BMP in one week
Instructions:
Stand-Alone Forms:
Changes to Home Medications: Yes
Discharge Medications:
DC Medications w/original date entered in [employer]
acetaminophen 325 mg tablet 650 mg (2 x 325 mg) PO Q4HPRN PRN temp > 101 F #30 tabs 02/12/24
apixaban 5 mg tablet (Eliquis) 5 mg PO BID #60 tabs 02/12/24
atorvastatin 40 mg tablet 40 mg PO QPM 3 days #3 tabs 02/12/24
clopidogrel 75 mg tablet 75 mg PO DAILY #30 tabs 02/12/24
furosemide 40 mg tablet 40 mg PO DAILY #30 tabs 02/12/24
metoprolol succinate 25 mg tablet,extended release 24 hr 25 mg PO BID #60 tabs 02/12/24
pantoprazole 40 mg tablet,delayed release 40 mg PO DAILY #30 tabs 02/12/24
potassium chloride 20 mEq oral packet (Klor-Con) 20 meq PO DAILY #30 ea 02/12/24
Home Medication Changes
All of above
Pending Results: No
--- NOTE | 2024-02-12 15:33 | PTCARENOTE ---
patient is D/C to [facility] via ambulance. INT D/C'd, telemetry DC'd, personal belongings packed and sent with patient. report given to Suzan GREGORIO [phone]. patient is dressed and ready for transport. packet sent with furniture delivery driver.
== END 2024-02-12 16:15 | DRG 321 ==
LOC: IVU 18:03
PROVIDERS: Internal Medicine; Internal Medicine Cardiovascular Disease; Internal Medicine Interventional Cardiology; Nurse Practitioner; Physician Assistant Medical; Registered Nurse; ADMITTING PHYSICIAN Internal Medicine; ATTENDING PHYSICIAN Internal Medicine; CONSULT PHYSICIAN Internal Medicine; CONSULT PHYSICIAN Nuclear Medicine Nuclear Cardiology; EMERGENCY PHYSICIAN Emergency Medicine; FAMILY PHYSICIAN Family Medicine
PROC: B240ZZ3 Ultrasonography of Single Coronary Artery, Intravascular (ICD-10-PCS; 2024-02-05)
PROC: B2151ZZ Fluoroscopy of Left Heart using Low Osmolar Contrast (ICD-10-PCS; 2024-02-05)
PROC: 4A023N7 Measurement of Cardiac Sampling and Pressure, Left Heart, Percutaneous Approach (ICD-10-PCS; 2024-02-05)
PROC: B2111ZZ Fluoroscopy of Multiple Coronary Arteries using Low Osmolar Contrast (ICD-10-PCS; 2024-02-05)
PROC: 027035Z Dilation of Coronary Artery, One Artery with Two Drug-eluting Intraluminal Devices, Percutaneous Approach (ICD-10-PCS; 2024-02-05)
DX: I21.4 Non-ST elevation (NSTEMI) myocardial infarction (principal); G92.8 Other toxic encephalopathy; K72.00 Acute and subacute hepatic failure without coma; R57.0 Cardiogenic shock; I50.23 Acute on chronic systolic (congestive) heart failure; I13.0 Hypertensive heart and chronic kidney disease with heart failure and stage 1 through stage 4 chronic kidney disease, or unspecified chronic kidney disease; I48.21 Permanent atrial fibrillation; I47.20 Ventricular tachycardia, unspecified; N17.9 Acute kidney failure, unspecified; N39.0 Urinary tract infection, site not specified; J98.11 Atelectasis; I25.10 Atherosclerotic heart disease of native coronary artery without angina pectoris; I25.5 Ischemic cardiomyopathy; E78.5 Hyperlipidemia, unspecified; I45.10 Unspecified right bundle-branch block; I70.0 Atherosclerosis of aorta; E87.6 Hypokalemia; R73.9 Hyperglycemia, unspecified; N18.9 Chronic kidney disease, unspecified; R45.89 Other symptoms and signs involving emotional state; F17.200 Nicotine dependence, unspecified, uncomplicated; Z95.5 Presence of coronary angioplasty implant and graft; I25.2 Old myocardial infarction; Z91.190 Patient's noncompliance with other medical treatment and regimen due to financial hardship; Z91.141 Patient's other noncompliance with medication regimen due to financial hardship; Z90.49 Acquired absence of other specified parts of digestive tract; Z11.52 Encounter for screening for COVID-19
CPT/HCPCS: 93308; 71045; 71046; 76775; 80048; 80053; 80061; 81003; 81015; 81099; 82248; 82570; 82962; 83036; 83880; 84156; 84300; 84484; 85025; 85027; 85347; 85379; 85730; 87086; 87811; 92610; 92978; 93005; 93306; 93458; 93970; 96374; 96375; 97116; 97163; 97167; 97530; 99291; C1725; C1753; C1760; C1769; C1874; C1894; C9600; J0153; J1327; Q9950; Q9967